=== PATIENT | female | born 2000 | race Caucasian/White ===

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

== ENCOUNTER 2019-01-12 17:33 | Inpatient (IN) | payer BC ==
--- NOTE | 2019-01-12 17:42 | PCM.LDHP ---
L&D History of Present Illness - General Date of Service: 01/12/19 Admit Problem/Dx: Admission Diagnosis/Problem Admission Diagnosis/Problem 01/12/19 17:37 18yo EDC 01/17/2019 39 2/7wks. O+, R-NI, GBS+. IOL due to maternal tachycardia. Source of Information: Patient History Limitations: Reports: No Limitations - History of Present Illness Improves with: Reports: None Worsens with: Reports: None Associated Symptoms: Reports: N - Related Data Allergies/Adverse Reactions: Allergies Allergy/AdvReac Type Severity Reaction Status Date / Time No Known Allergies Allergy Verified 10/18/18 23:21 Home Medications: Home Meds Acetaminophen [Tylenol Extra Strength] 1 - 2 tab PO PRN 10/18/18 [History] Past Medical History HEENT History: Reports: None Cardiovascular History: Reports: None Respiratory History: Reports: None Gastrointestinal History: Reports: None Genitourinary History: Reports: None 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: 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 History: Reports: None Neurological History: Reports: None Psychiatric History: Reports: None Endocrine/Metabolic History: Reports: None Hematologic History: Reports: None Dermatologic History: Reports: None - Infectious Disease History Infectious Disease History: Reports: Chicken Pox - Past Surgical History Cardiovascular Surgical History: Reports: None Social & Family History - Family History Family Medical History: Noncontributory - Caffeine Use Caffeine Use: Reports: Soda H&P Review of Systems - Review of Systems: Review Of Systems: See Below General: Reports: No Symptoms HEENT: Reports: No Symptoms Pulmonary: Reports: No Symptoms Cardiovascular: Reports: No Symptoms Gastrointestinal: Reports: No Symptoms Genitourinary: Reports: No Symptoms 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: Reports: No Symptoms Skin: Reports: No Symptoms Psychiatric: Reports: No Symptoms Neurological: Reports: No Symptoms Hematologic/Lymphatic: Reports: No Symptoms Immunologic: Reports: No Symptoms L&D Exam - Exam Exam: See Below - OB Specific Movement: Active Heart Tones: Present Presentation: Vertex - Tabares Score Tabares Score Cervix Position: Midposition Tabares Score Consistency: Soft Tabares Score Effacement: 51-70% Tabares Score Dilation: 3-4 cm Tabares Score 's Station: -2 Tabares Score Total: 8 - Exam General: Alert, Oriented, Cooperative HEENT: Hearing Intact Lungs: Clear to Auscultation, Normal Respiratory Effort Cardiovascular: Regular Rate, Regular Rhythm, Normal S1, Normal S2 GI/Abdominal Exam: Soft, Non-Tender Rectal Exam: Deferred Genitourinary: Normal external exam, Normal bimanual exam, Cervical dilitation Back Exam: Normal Inspection, Full Range of Motion Extremities: Normal Inspection, Normal Range of Motion, Non-Tender, No Pedal Edema, Normal Capillary Refill Skin: Warm, Dry, Intact Neurological: Cranial Nerves Intact, Reflexes Equal Bilateral, Strength Equal Bilateral, Normal Gait, Normal Speech, Normal Tone Psychiatric: Alert, Normal Affect, Normal Mood - Problem List (1) Tachycardia SNOMED Code(s): 9249806 ICD Code: R00.0 - TACHYCARDIA, UNSPECIFIED Status: Acute Priority: High Current Visit: Yes (2) Supervision of normal IUP (intrauterine ) in primigravida SNOMED Code(s): 31770616, 115010737, [id number], 522683241 ICD Code: Z34.00 - ENCNTR FOR SUPRVSN OF NORMAL FIRST , UNSP TRIMESTER Status: Acute Priority: High Current Visit: No Qualifiers: Trimester: third trimester Qualified Code(s): Z34.03 - Encounter for supervision of normal first , third trimester Problem List Initiated/Reviewed/Updated: Yes Assessment/Plan Comment:: IOL A: 18yo EDC 01/17/2019 39 2/7wks. O+, R-NI, GBS+. IOL due to maternal tachycardia. P: Admit, cytotec to pitocin, epidural prn. Anticipate , Dr Santos updated.
[2019-01-12] MEDS ORDERED: Methylergonovine 0.2 MG/1 ML Amp IM PRN (17:52)
[2019-01-12] MEDS ORDERED: Water For Irrigation,Sterile 1,000 ML Container IRR PRN (17:52)
[2019-01-12] MEDS ORDERED: Ampicillin 2 GM in Sodium Chloride 0.9% 100 ML IV ONE (17:52)
[2019-01-12] MEDS ORDERED: Lidocaine 1% 50 ML MDV INJECT PRN (17:52)
[2019-01-12] MEDS ORDERED: Sodium Chloride 0.9% 2.5 ML Syringe FLUSH PRN (17:52)
[2019-01-12] MEDS ORDERED: Nalbuphine 10 MG/1 ML Vial IVPUSH PRN (17:52)
[2019-01-12] MEDS ORDERED: Carboprost Tromethamine 250 MCG/1 ML Amp IM PRN (17:52)
[2019-01-12] MEDS ORDERED: Misoprostol 200 MCG Tab PO PRN (17:52)
[2019-01-12] MEDS ORDERED: Tranexamic Acid 1,000 MG in Sodium Chloride 0.9% 100 ML IV PRN (17:52)
[2019-01-12] MEDS ORDERED: Sodium Chloride 0.9% 10 ML Syringe FLUSH PRN (17:52)
[2019-01-12] MEDS ORDERED: Terbutaline 1 MG/ML SDV SUBCUT PRN (17:55)
[2019-01-12] MEDS ORDERED: Misoprostol 25 MCG (1/4 of 100 MCG) Tab VAG PRN (17:55)
[2019-01-12] MEDS ORDERED: Oxytocin/0.9 % Sodium Chloride 30 UNIT/500 ML BAG IV SCH ×2 (18:00)
[2019-01-12] MEDS: Lactated Ringers 1,000 ML IV SCH (18:12)
[2019-01-12] MEDS: Misoprostol 25 MCG (1/4 of 100 MCG) Tab PO SCH ×2 (18:17→23:05)
[2019-01-12] MEDS: Misoprostol 25 MCG (1/4 of 100 MCG) Tab VAG PRN ×2 (18:17→23:05)
[2019-01-12] MEDS ORDERED: hydrOXYzine Pamoate 25 MG Cap PO ONE (20:42)
[2019-01-13] MEDS ORDERED: Ampicillin 2 GM in Sodium Chloride 0.9% 100 ML IV ONE (05:04)
[2019-01-13] MEDS ORDERED: fentaNYL 100 MCG/2 ML SDV ONE (05:51)
[2019-01-13] MEDS ORDERED: Lidocaine HCl/EPINEPHrine 5 ML IJ ONE (05:52)
[2019-01-13] MEDS: Lactated Ringers 1,000 ML IV SCH (06:11)
--- NOTE | 2019-01-13 06:16 | PCM.PREANE ---
Preanesthetic Assessment - Anesthesia/Transfusion/Family Hx Anesthesia History: Prior Anesthesia Without Reaction Family History of Anesthesia Reaction: No - Review of Systems General: No Symptoms Pulmonary: No Symptoms Cardiovascular: No Symptoms Gastrointestinal: No Symptoms Neurological: Seizure Other: Reports: None - Physical Assessment Height: 1.68 m Weight: 78.925 kg ASA Class: 2E Mental Status: Alert & Oriented x3 Airway Class: Mallampati = 2 Dentition: Reports: Normal Dentition ROM/Head Extension: Full Lungs: Clear to Auscultation Cardiovascular: Regular Rate - Lab Values: Laboratory Last Values WBC 11.96 K/uL (4.0-11.0) H 01/12/19 18:09 RBC 3.53 M/uL (4.30-5.90) L 01/12/19 18:09 Hgb 10.2 g/dL (12.0-16.0) L 01/12/19 18:09 Hct 31.0 % (36.0-46.0) L 01/12/19 18:09 MCV 87.8 fL (80.0-98.0) 01/12/19 18:09 MCH 28.9 pg (27.0-32.0) 01/12/19 18:09 MCHC 32.9 g/dL (31.0-37.0) 01/12/19 18:09 RDW Std Deviation 43.3 fl (28.0-62.0) 01/12/19 18:09 RDW Coeff of Gideon 14 % (11.0-15.0) 01/12/19 18:09 Plt Count 250 K/uL (150-400) 01/12/19 18:09 MPV 9.70 fL (7.40-12.00) 01/12/19 18:09 Nucleated RBC % 0.0 /100WBC 01/12/19 18:09 Nucleated RBCs # 0 K/uL 01/12/19 18:09 Blood Type O POSITIVE 01/12/19 18:09 Antibody Screen NEGATIVE 01/12/19 18:09 - Allergies Allergies/Adverse Reactions: Allergies Allergy/AdvReac Type Severity Reaction Status Date / Time No Known Allergies Allergy Verified 01/12/19 17:50 - Acknowledgements Anesthesia Type Planned: Epidural Pt an Appropriate Candidate for the Planned Anesthesia: Yes Alternatives and Risks of Anesthesia Discussed w Pt/Guardian: Yes Pt/Guardian Understands and Agrees with Anesthesia Plan: Yes PreAnesthesia Questionnaire HEENT History: Reports: Impaired Vision, Otitis Media, Other (See Below) Cardiovascular History: Reports: Other (See Below) Other Cardiovascular History: tachycardia Respiratory History: Reports: None Gastrointestinal History: Reports: None Genitourinary History: Reports: UTI, 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: 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 History: Reports: None Neurological History: Reports: Migraines, Seizure, Other (See Below) Other Neuro History: last seizure february 2017 Psychiatric History: Reports: Anxiety, Depression Endocrine/Metabolic History: Reports: None Hematologic History: Reports: None Dermatologic History: Reports: None - Infectious Disease History Infectious Disease History: Reports: Chicken Pox - Past Surgical History HEENT Surgical History: Reports: Adenoidectomy, Tonsillectomy Other HEENT Surgeries/Procedures: wears eye glasses Cardiovascular Surgical History: Reports: None Respiratory Surgical History: Reports: None GI Surgical History: Reports: None Female Surgical History: Reports: None Endocrine Surgical History: Reports: None 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 Surgical History: Reports: None Dermatological Surgical History: Reports: None - HOME MEDS Home Medications: Home Meds Acetaminophen [Tylenol Extra Strength] 1 - 2 tab PO ASDIRECTED PRN 10/18/18 [ History] - CURRENT (IN HOUSE) MEDS Current Meds: Current Medications Carboprost Tromethamine (Hemabate Ds) 250 mcg IM ASDIRECTED PRN PRN Reason: Post Hemorrhage Lactated Ringer's (Ringers, Lactated) 1,000 mls @ 150 mls/hr IV ASDIRECTED MIKEY Last Admin: 01/13/19 06:11 Dose: 999 mls/hr Oxytocin/Sodium Chloride (Oxytocin 30 Unit/500 Ml-Ns) 30 unit in 500 mls @ 999 mls/hr IV TITRATE MIKEY Tranexamic Acid 1,000 mg/ (Sodium Chloride) 110 mls @ 660 mls/hr IV ONETIME PRN PRN Reason: Bleeding Oxytocin/Sodium Chloride (Oxytocin 30 Unit/500 Ml-Ns) 30 unit in 500 mls @ 2 mls/hr IV TITRATE MIKEY; Protocol Lidocaine HCl (Xylocaine 1%) 50 ml INJECT ONETIME PRN PRN Reason: Laceration repair Methylergonovine Maleate (Methergine) 0.2 mg IM ASDIRECTED PRN PRN Reason: Post Hemorrhage Misoprostol (Cytotec) 200 mcg PO ONETIME PRN PRN Reason: Post Hemorrhage Misoprostol (Cytotec) 25 mcg VAG ONETIME PRN PRN Reason: Cervical Ripening Last Admin: 01/12/19 23:05 Dose: 25 mcg Misoprostol (Cytotec) 25 mcg VAG Q4H PRN PRN Reason: Cervical Ripening Misoprostol (Cytotec) 25 mcg PO Q4H MIKEY Last Admin: 01/12/19 23:05 Dose: 25 mcg Nalbuphine HCl (Nubain) 10 mg IVPUSH Q1H PRN PRN Reason: Pain (severe 7-10) Sodium Chloride (Saline Flush) 10 ml FLUSH ASDIRECTED PRN PRN Reason: Keep Vein Open Sodium Chloride (Saline Flush) 2.5 ml FLUSH ASDIRECTED PRN PRN Reason: Keep Vein Open Sterile Water (Sterile Water For Irrigation) 1,000 ml IRR ASDIRECTED PRN PRN Reason: delivery Terbutaline Sulfate (Brethine) 0.25 mg SUBCUT ASDIRECTED PRN PRN Reason: Tacysystole Discontinued Medications Fentanyl (Sublimaze) Confirm Administered Dose 100 mcg .ROUTE .STK-MED ONE Stop: 01/13/19 05:52 Hydroxyzine Pamoate (Vistaril) 50 mg PO ONETIME ONE Stop: 01/12/19 20:43 Ampicillin Sodium 2 gm/ Sodium (Chloride) 100 mls @ 200 mls/hr IV ONETIME ONE Stop: 01/12/19 18:21 Last Admin: 01/12/19 19:00 Dose: Not Given Ampicillin Sodium 2 gm/ Sodium (Chloride) 100 mls @ 200 mls/hr IV ONETIME ONE Stop: 01/13/19 05:33 Last Admin: 01/13/19 05:25 Dose: 200 mls/hr Fentanyl/Bupivacaine HCl ([id number]-Tsslj-[id number] 2 Mcg/Ml-0.125%) Confirm Administered Dose 100 mls @ as directed .ROUTE .STK-MED ONE Stop: 01/13/19 05:52 Lidocaine/Epinephrine (Lidocaine 1.5%-Epi 1:200,000) Confirm Administered Dose 5 ml IJ .STK-MED ONE Stop: 01/13/19 05:53
[2019-01-13] MEDS ORDERED: Ampicillin 1 GM in Sodium Chloride 0.9% 50 ML IV SCH (10:00)
--- NOTE | 2019-01-13 13:10 | PCM.DEL ---
L & D Note - General Info Date of Service: 01/13/19 Mother's Due Date: 01/17/19 - Delivery Note Labor: Augmented by Oxytocin Cervical Ripening Method: Misoprostil Delivery Outcome: Livebirth Infant Delivery Method: Spontaneous Vaginal Delivery-Single Delivery Mode: Spontaneous Presentation: Vertex Nuchal Cord: None Anesthesia Type: Epidural Amniotic Fluid Description: Clear Episiotomy Type: None Laceration: 1st Degree, Labial Suture type: Other Suture size: 4-0 Placenta: Intact, Spontaneous Cord: 3 Vessels Score 1 min: 2 Score 5 min: 5 Score 10 min: 9 Second Stage Interventions: Reports: Pushing, Pulls Own Legs Back Delivery Comments (Free Text/Narrative):: of viable female, head delivered with good pushing, shoulders and body followed easily. limp and not responsive placed on mothers abdomen with RN at bs stimulating, CC and cut, infant to warmer, rapid response called. Pitocin to IVF, cord blood collected. Placenta delivered grossly intact. Inspection noted 1st degree upper labial lac that was repaired in usual manor with 4-0 mono. EBL 300cc, APGARS 2/5/9 WT: 7lb 6oz. Mother and baby left in stable condition for recovery. Induction Criteria - Tabares Score Tabares Score Dilation: 3-4 cm Tabares Score Effacement: 60-70% Tabares Score 's Station: -2 Tabares Score Consistency: Medium Tabares Score Cervix Position: Midposition Tabares Score Total: 7 Tabares Score Presenting Part: Reports: Cephalic - Induction Gestational Age >/= 39 wks: Yes Medical Indication: maternal tachycardia Reassuring Monitoring Strip: Yes Absence of Tachy Systole: Yes - General Info Date of Service: 01/13/19 Admission Dx/Problem (Free Text): Admission Diagnosis/Problem Admission Diagnosis/Problem 01/12/19 17:37 18yo EDC 01/17/2019 39 2/7wks. O+, R-NI, GBS+. IOL due to maternal tachycardia. Functional Status: Reports: Pain Controlled - Review of Systems General: Reports: No Symptoms HEENT: Reports: No Symptoms Pulmonary: Reports: No Symptoms Cardiovascular: Reports: No Symptoms Gastrointestinal: Reports: No Symptoms Genitourinary: Reports: No Symptoms 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: Reports: No Symptoms Skin: Reports: No Symptoms Neurological: Reports: No Symptoms Psychiatric: Reports: No Symptoms - Patient Data Weight - Most Recent: 78.925 kg Lab Results Last 24 Hours: Laboratory Results - last 24 hr 01/12/19 01/12/19 Range/Units 18:09 18:09 WBC 11.96 H (4.0-11.0) K/uL RBC 3.53 L (4.30-5.90) M/uL Hgb 10.2 L (12.0-16.0) g/dL Hct 31.0 L (36.0-46.0) % MCV 87.8 (80.0-98.0) fL MCH 28.9 (27.0-32.0) pg MCHC 32.9 (31.0-37.0) g/dL RDW Std Deviation 43.3 (28.0-62.0) fl RDW Coeff of Gideon 14 (11.0-15.0) % Plt Count 250 (150-400) K/uL MPV 9.70 (7.40-12.00) fL Nucleated RBC % 0.0 /100WBC Nucleated RBCs # 0 K/uL Blood Type O POSITIVE Antibody Screen NEGATIVE Med Orders - Current: Current Medications Carboprost Tromethamine (Hemabate Ds) 250 mcg IM ASDIRECTED PRN PRN Reason: Post Hemorrhage Lactated Ringer's (Ringers, Lactated) 1,000 mls @ 150 mls/hr IV ASDIRECTED MIKEY Last Admin: 01/13/19 06:11 Dose: 999 mls/hr Oxytocin/Sodium Chloride (Oxytocin 30 Unit/500 Ml-Ns) 30 unit in 500 mls @ 999 mls/hr IV TITRATE MIKEY Tranexamic Acid 1,000 mg/ (Sodium Chloride) 110 mls @ 660 mls/hr IV ONETIME PRN PRN Reason: Bleeding Oxytocin/Sodium Chloride (Oxytocin 30 Unit/500 Ml-Ns) 30 unit in 500 mls @ 2 mls/hr IV TITRATE MIKEY; Protocol Last Titration: 01/13/19 10:43 Dose: 6 munits/min, 6 mls/hr Ampicillin Sodium 1 gm/ Sodium (Chloride) 50 mls @ 100 mls/hr IV Q4H MIKEY Last Admin: 01/13/19 10:20 Dose: 100 mls/hr Lidocaine HCl (Xylocaine 1%) 50 ml INJECT ONETIME PRN PRN Reason: Laceration repair Methylergonovine Maleate (Methergine) 0.2 mg IM ASDIRECTED PRN PRN Reason: Post Hemorrhage Misoprostol (Cytotec) 200 mcg PO ONETIME PRN PRN Reason: Post Hemorrhage Misoprostol (Cytotec) 25 mcg VAG ONETIME PRN PRN Reason: Cervical Ripening Last Admin: 01/12/19 23:05 Dose: 25 mcg Misoprostol (Cytotec) 25 mcg VAG Q4H PRN PRN Reason: Cervical Ripening Misoprostol (Cytotec) 25 mcg PO Q4H MIKEY Last Admin: 01/12/19 23:05 Dose: 25 mcg Nalbuphine HCl (Nubain) 10 mg IVPUSH Q1H PRN PRN Reason: Pain (severe 7-10) Sodium Chloride (Saline Flush) 10 ml FLUSH ASDIRECTED PRN PRN Reason: Keep Vein Open Sodium Chloride (Saline Flush) 2.5 ml FLUSH ASDIRECTED PRN PRN Reason: Keep Vein Open Sterile Water (Sterile Water For Irrigation) 1,000 ml IRR ASDIRECTED PRN PRN Reason: delivery Terbutaline Sulfate (Brethine) 0.25 mg SUBCUT ASDIRECTED PRN PRN Reason: Tacysystole Discontinued Medications Fentanyl (Sublimaze) Confirm Administered Dose 100 mcg .ROUTE .STK-MED ONE Stop: 01/13/19 05:52 Hydroxyzine Pamoate (Vistaril) 50 mg PO ONETIME ONE Stop: 01/12/19 20:43 Ampicillin Sodium 2 gm/ Sodium (Chloride) 100 mls @ 200 mls/hr IV ONETIME ONE Stop: 01/12/19 18:21 Last Admin: 01/12/19 19:00 Dose: Not Given Ampicillin Sodium 2 gm/ Sodium (Chloride) 100 mls @ 200 mls/hr IV ONETIME ONE Stop: 01/13/19 05:33 Last Admin: 01/13/19 05:25 Dose: 200 mls/hr Fentanyl/Bupivacaine HCl (Ggpsenik-Gkywy-Gn 2 Mcg/Ml-0.125%) Confirm Administered Dose 100 mls @ as directed .ROUTE .STK-MED ONE Stop: 01/13/19 05:52 Lidocaine/Epinephrine (Lidocaine 1.5%-Epi 1:200,000) Confirm Administered Dose 5 ml IJ .STK-MED ONE Stop: 01/13/19 05:53 - Exam General: Alert, Oriented, Cooperative, No Acute Distress Lungs: Normal Respiratory Effort GI/Abdominal Exam: Soft, Non-Tender (Female) Exam: Normal External Exam, Normal Bimanual Exam, Vaginal Bleeding, Vaginal Tears Back Exam: Normal Inspection, Full Range of Motion Extremities: Normal Inspection, Normal Range of Motion, Non-Tender, No Pedal Edema, Normal Capillary Refill Skin: Warm, Dry, Intact Wound/Incisions: Healing Well Neurological: No New Focal Deficit, Normal Speech, Normal Tone, Strength Equal Bilateral Psy/Mental Status: Alert, Normal Affect, Normal Mood - Problem List & Annotations (1) Tachycardia SNOMED Code(s): 1225012 Code(s): R00.0 - TACHYCARDIA, UNSPECIFIED Status: Acute Priority: High Current Visit: Yes (2) Supervision of normal IUP (intrauterine ) in primigravida SNOMED Code(s): 47053179, 634607568, 878543215, 216369875 Code(s): Z34.00 - ENCNTR FOR SUPRVSN OF NORMAL FIRST , UNSP TRIMESTER Status: Acute Priority: High Current Visit: No Qualifiers: Trimester: third trimester Qualified Code(s): Z34.03 - Encounter for supervision of normal first , third trimester (3) (normal spontaneous vaginal delivery) SNOMED Code(s): 34474313 Code(s): O80 - ENCOUNTER FOR FULL-TERM UNCOMPLICATED DELIVERY Status: Acute Priority: High Current Visit: Yes - Problem List Review Problem List Initiated/Reviewed/Updated: Yes - My Orders Last 24 Hours: My Active Orders 01/12/19 17:52 Patient Status [ADT] Routine Heart Tones [RC] CONTINUOUS Non Stress Test [RC] PER UNIT ROUTINE May Shower [RC] ASDIRECTED Notify Provider [RC] PRN Up ad Ramya [RC] ASDIRECTED Vaginal Exam [RC] PRN Vital Signs [RC] PER UNIT ROUTINE Carboprost Tromethamine [Hemabate DS] 250 mcg IM ASDIRECTED PRN Lidocaine 1% [Xylocaine 1%] 50 ml INJECT ONETIME PRN Methylergonovine [Methergine] 0.2 mg IM ASDIRECTED PRN Nalbuphine [Nubain] 10 mg IVPUSH Q1H PRN Sodium Chloride 0.9% [Saline Flush] 10 ml FLUSH ASDIRECTED PRN Sodium Chloride 0.9% [Saline Flush] 2.5 ml FLUSH ASDIRECTED PRN Tranexamic Acid [Cyklokapron] 1,000 mg Sodium Chloride 0.9% [Normal Saline] 100 ml IV ONETIME Water For Irrigation,Sterile [Sterile Water for Irrigation] 1,000 ml IRR ASDIRECTED PRN miSOPROStol [Cytotec] 200 mcg PO ONETIME PRN Scalp Electrode [WOMSER] Per Unit Routine Peripheral IV Insertion Adult [OM.PC] Routine Resuscitation Status Routine 01/12/19 17:55 Communication Order [RC] ASDIRECTED Communication Order [RC] ASDIRECTED Communication Order [RC] ASDIRECTED Notify Provider [RC] PRN Notify Provider [RC] PRN Notify Provider [RC] STAT Oxygen Therapy [RC] ASDIRECTED Terbutaline [Brethine] 0.25 mg SUBCUT ASDIRECTED PRN miSOPROStol [Cytotec] 25 mcg VAG ONETIME PRN miSOPROStol [Cytotec] 25 mcg VAG Q4H PRN 01/12/19 18:00 Lactated Ringers [Ringers, Lactated] 1,000 ml IV ASDIRECTED Oxytocin/0.9 % Sodium Chloride [Oxytocin 30 Unit/500 ML-NS] 30 unit in 500 ml IV TITRATE Oxytocin/0.9 % Sodium Chloride [Oxytocin 30 Unit/500 ML-NS] 30 unit in 500 ml IV TITRATE miSOPROStol [Cytotec] 25 mcg PO Q4H Medication Administration Instruction [OM.PC] Q3H 01/12/19 Dinner Regular Diet [DIET] - Plan Plan:: IOL A: 18yo EDC 01/17/2019 39 2/7wks. O+, R-NI, GBS+. IOL due to maternal tachycardia. P: Admit, cytotec to pitocin, epidural prn. Anticipate , Dr Santos updated. Delivery A: viable female, AGPARS , WT: 7lb 6oz, EBL 300cc, 1st deg lac with repair. Mother and baby in stable condition P: Routine pp plan of care
[2019-01-13] MEDS ORDERED: oxyCODONE 5 MG Tab PO PRN (13:15)
[2019-01-13] MEDS ORDERED: Docusate Sodium 100 MG Cap PO PRN (13:15)
[2019-01-13] MEDS ORDERED: Benzocaine/Menthol 20%-0.5% Spray 78 GM Cannister TOP PRN (13:15)
[2019-01-13] MEDS ORDERED: Witch Hazel Medicated Pads 40/Jar TOP PRN (13:15)
[2019-01-13] MEDS ORDERED: Bisacodyl 10 MG Supp RECTAL PRN (13:15)
[2019-01-13] MEDS ORDERED: Lanolin 100% Cream 7 GM Tube TOP PRN (13:15)
[2019-01-13] MEDS ORDERED: Ibuprofen 400 MG Tab PO PRN (13:15)
[2019-01-13] MEDS ORDERED: Ibuprofen 800 MG Tab PO PRN (13:15)
[2019-01-13] MEDS ORDERED: Acetaminophen 500 MG Tab PO PRN ×2 (13:15)
--- NOTE | 2019-01-14 07:14 | PCM48HPAN ---
Post Anesthesia Note - EVALUATION WITHIN 48HRS OF ANESTHETIC Vital Signs in Normal Range: Yes Patient Participated in Evaluation: Yes Respiratory Function Stable: Yes Airway Patent: Yes Cardiovascular Function Stable: Yes Hydration Status Stable: Yes Pain Control Satisfactory: Yes Nausea and Vomiting Control Satisfactory: Yes Mental Status Recovered: Yes Resp Rate: 18
--- NOTE | 2019-01-14 08:27 | PCM.DCSUM1 ---
Discharge Summary - Hospital Course Free Text/Narrative:: discharge home with ; follow up in 6 weeks for Diagnosis: Stroke: No - Discharge Data Discharge Date: 01/14/19 Discharge Disposition: Home, Self-Care 01 Condition: Good - Patient Instructions Diet: Usual Diet as Tolerated Activity: As Tolerated, No Strenuous Activities, Rest and Relax Today Driving: May Drive Today Showering/Bathing: May Shower Notify Provider of: Fever, Increased Pain, Swelling and Redness, Nausea and/or Vomiting Other/Special Instructions: discharge home with ; follow up in 6 weeks for - Discharge Plan *PRESCRIPTION DRUG MONITORING PROGRAM REVIEWED*: Not Applicable *COPY OF PRESCRIPTION DRUG MONITORING REPORT IN PATIENT KRIS: Not Applicable Home Medications: Home Meds Acetaminophen [Tylenol Extra Strength] 1 - 2 tab PO ASDIRECTED PRN 10/18/18 [ History] Oxygen Therapy Mode: Room Air Referrals: [facility] [Outside] Deanne Andujar CNM [Mid-] - 02/24/19 1:30 pm - Discharge Summary/Plan Comment DC Time >30 min.: Yes - Patient Data Vitals - Most Recent: Last Vital Signs Temp 36.5 C 01/14/19 07:45 Pulse 52 L 01/14/19 07:45 Resp 16 01/14/19 07:45 BP 101/60 01/14/19 07:45 Pulse Ox 97 01/14/19 07:45 Weight - Most Recent: 78.925 kg Lab Results - Last 24 hrs: Laboratory Results - last 24 hr 01/14/19 Range/Units 05:50 Hgb 8.4 L (12.0-16.0) g/dL Hct 26.0 L (36.0-46.0) % Med Orders - Current: Current Medications Acetaminophen (Tylenol Extra Strength) 500 mg PO Q4H PRN PRN Reason: Pain Acetaminophen (Tylenol Extra Strength) 1,000 mg PO Q4H PRN PRN Reason: Pain Benzocaine/Menthol (Dermoplast Pain Relief 20%-0.5% [place]) 78 gm TOP ASDIRECTED PRN PRN Reason: Perineal Comfort Measure Last Admin: 01/13/19 18:05 Dose: 1 can Bisacodyl (Dulcolax) 10 mg RECTAL ONETIME PRN PRN Reason: Constipation Docusate Sodium (Colace) 100 mg PO BID PRN PRN Reason: Constipation Emollient Ointment (Lansinoh Hpa) 0 gm TOP ASDIRECTED PRN PRN Reason: Sore Nipples Last Admin: 01/13/19 18:05 Dose: 1 tube Ibuprofen (Motrin) 400 mg PO Q4H PRN PRN Reason: Pain Ibuprofen (Motrin) 800 mg PO Q6H PRN PRN Reason: Pain Last Admin: 01/14/19 01:58 Dose: 800 mg Oxycodone HCl (Oxycodone) 5 mg PO Q2H PRN PRN Reason: Pain Witch Maria Guadalupe (Tucks) 1 pad TOP ASDIRECTED PRN PRN Reason: comfort care Last Admin: 01/13/19 18:05 Dose: 1 tub Discontinued Medications Carboprost Tromethamine (Hemabate Ds) 250 mcg IM ASDIRECTED PRN PRN Reason: Post Hemorrhage Fentanyl (Sublimaze) Confirm Administered Dose 100 mcg .ROUTE .STK-MED ONE Stop: 01/13/19 05:52 Last Admin: 01/14/19 08:04 Dose: Not Given Hydroxyzine Pamoate (Vistaril) 50 mg PO ONETIME ONE Stop: 01/12/19 20:43 Ampicillin Sodium 2 gm/ Sodium (Chloride) 100 mls @ 200 mls/hr IV ONETIME ONE Stop: 01/12/19 18:21 Last Admin: 01/12/19 19:00 Dose: Not Given Lactated Ringer's (Ringers, Lactated) 1,000 mls @ 150 mls/hr IV ASDIRECTED MIKEY Last Admin: 01/13/19 06:11 Dose: 999 mls/hr Oxytocin/Sodium Chloride (Oxytocin 30 Unit/500 Ml-Ns) 30 unit in 500 mls @ 999 mls/hr IV TITRATE MIKEY Tranexamic Acid 1,000 mg/ (Sodium Chloride) 110 mls @ 660 mls/hr IV ONETIME PRN PRN Reason: Bleeding Oxytocin/Sodium Chloride (Oxytocin 30 Unit/500 Ml-Ns) 30 unit in 500 mls @ 2 mls/hr IV TITRATE MIKEY; Protocol Last Titration: 01/13/19 12:30 Dose: 500 munits/min, 500 mls/hr Ampicillin Sodium 2 gm/ Sodium (Chloride) 100 mls @ 200 mls/hr IV ONETIME ONE Stop: 01/13/19 05:33 Last Admin: 01/13/19 05:25 Dose: 200 mls/hr Fentanyl/Bupivacaine HCl (Dhgfybwg-Gpdog-Rb 2 Mcg/Ml-0.125%) Confirm Administered Dose 100 mls @ as directed .ROUTE .STK-MED ONE Stop: 01/13/19 05:52 Last Admin: 01/14/19 08:03 Dose: Not Given Ampicillin Sodium 1 gm/ Sodium (Chloride) 50 mls @ 100 mls/hr IV Q4H [facility] Last Admin: 01/13/19 10:20 Dose: 100 mls/hr Lidocaine HCl (Xylocaine 1%) 50 ml INJECT ONETIME PRN PRN Reason: Laceration repair Lidocaine/Epinephrine (Lidocaine 1.5%-Epi 1:200,000) Confirm Administered Dose 5 ml IJ .STK-MED ONE Stop: 01/13/19 05:53 Last Admin: 01/14/19 08:04 Dose: Not Given Methylergonovine Maleate (Methergine) 0.2 mg IM ASDIRECTED PRN PRN Reason: Post Hemorrhage Misoprostol (Cytotec) 200 mcg PO ONETIME PRN PRN Reason: Post Hemorrhage Misoprostol (Cytotec) 25 mcg VAG ONETIME PRN PRN Reason: Cervical Ripening Last Admin: 01/12/19 23:05 Dose: 25 mcg Misoprostol (Cytotec) 25 mcg VAG Q4H PRN PRN Reason: Cervical Ripening Misoprostol (Cytotec) 25 mcg PO Q4H [facility] Last Admin: 01/12/19 23:05 Dose: 25 mcg Nalbuphine HCl (Nubain) 10 mg IVPUSH Q1H PRN PRN Reason: Pain (severe 7-10) Sodium Chloride (Saline Flush) 10 ml FLUSH ASDIRECTED PRN PRN Reason: Keep Vein Open Sodium Chloride (Saline Flush) 2.5 ml FLUSH ASDIRECTED PRN PRN Reason: Keep Vein Open Sterile Water (Sterile Water For Irrigation) 1,000 ml IRR ASDIRECTED PRN PRN Reason: delivery Terbutaline Sulfate (Brethine) 0.25 mg SUBCUT ASDIRECTED PRN PRN Reason: Tacysystole
== END 2019-01-14 14:40 | disposition home or self-care (01) | DRG 560 ==
LOC: MW.OBCHECK 17:33 → MW.OB 17:34 → OBSVTOIN 01-13 13:16 → MW.OB 01-13 18:56
PROVIDERS: ADMIT Obstetrics & Gynecology; ATTEND Obstetrics & Gynecology
PROC: 10E0XZZ Delivery of Products of Conception, External Approach (ICD-10-PCS; principal; 2019-01-13)
PROC: 3E0P7VZ Introduction of Hormone into Female Reproductive, Via Natural or Artificial Opening (ICD-10-PCS; 2019-01-13)
PROC: 10907ZC Drainage of Amniotic Fluid, Therapeutic from Products of Conception, Via Natural or Artificial Opening (ICD-10-PCS; 2019-01-13)
PROC: 3E033VJ Introduction of Other Hormone into Peripheral Vein, Percutaneous Approach (ICD-10-PCS; 2019-01-13)
PROC: 0UQMXZZ Repair Vulva, External Approach (ICD-10-PCS; 2019-01-13)
PROC: 00HU33Z Insertion of Infusion Device into Spinal Canal, Percutaneous Approach (ICD-10-PCS; 2019-01-13)
PROC: 3E0R3BZ Introduction of Anesthetic Agent into Spinal Canal, Percutaneous Approach (ICD-10-PCS; 2019-01-13)
DX: O75.89 Other specified complications of labor and delivery (principal); Z37.0 Single live birth; O70.0 First degree perineal laceration during delivery; O99.824 Streptococcus B carrier state complicating childbirth; Z3A.39 39 weeks gestation of pregnancy
CPT/HCPCS: 36415; 59025; 59409; 85014; 85018; 85027; 86850; 86900; 86901; A9270-GY; J0290; J2590; J3010; J7030; J7050; J7120

== ENCOUNTER 2019-05-30 12:08 | Emergency (ER) | payer SELFPAY ==
--- NOTE | 2019-05-30 12:16 | EDM.PDOC ---
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 She states she has not had a seizure in two years and has been off of her medication but this morning she was walking with her sister when she started feeling lightheaded and short of breath like she was going to have a seizure. She sat down and states she could hear people but was unable to see anything. Mom states that when she got to the room she was laying down moving her head up and down. She states she has a slight headache. She is complaing of left sided abdominal pain. She recently found out she is and is approximally 10 weeks by dates. Denies fevers, chills, nausea, vomiting, vaginal bleeding or discharge. Review of systems: As per history of present illness and below otherwise all systems reviewed and negative. Past medical history: As per history of present illness and as reviewed below otherwise noncontributory. Surgical history: As per history of present illness and as reviewed below otherwise noncontributory. Social history: No reported history of drug or alcohol abuse. Family history: As per history of present illness and as reviewed below otherwise noncontributory. Physical exam: General: Patient sitting comfortably in no acute distress and nontoxic appearing HEENT: Atraumatic, normocephalic, pupils reactive, negative for conjunctival pallor or scleral icterus, mucous membranes moist, throat clear, neck supple, nontender, trachea midline. No meningeal signs. Lungs: Clear to auscultation, breath sounds equal bilaterally, chest nontender. Heart: S1S2, regular, negative for clicks, rubs, or overt murmur. Abdomen: Soft, nondistended, nontender. Negative for masses or hepatosplenomegaly. Negative for costovertebral tenderness. No rigidity, rebound , guarding. Pelvis: Stable nontender. Genitourinary: Deferred. Rectal: Deferred. Extremities: Atraumatic, negative for cords or calf pain. Neurovascular unremarkable. Neuro: Awake, alert, oriented. Cranial nerves II through XII unremarkable. Cerebellum unremarkable. Motor and sensory unremarkable throughout. Exam nonfocal. Notes: Diagnostics: CBC, CMP, UA, hcg quant, OB US Therapeutics: 1L Normal Saline IV Prescriptions: Augmentin Impression: UTI, seizure-like activity Plan: 1. Take antibiotic as instructed 2. Follow up with OB and neurology 3. Return to ED as needed as discussed Definitive disposition and diagnosis as appropriate pending reevaluation and review of above. Left Lower Abdominal Pain Score (Numeric/FACES): 3 - Related Data Allergies Allergy/AdvReac Type Severity Reaction Status Date / Time No Known Allergies Allergy Verified 05/30/19 12:20 Home Meds: Home Meds Amoxicillin/Potassium Clav [Augmentin 500-125 Tablet] 1 each PO BID 7 Days #14 tablet 05/30/19 [Rx] Past Medical History HEENT History: Reports: Impaired Vision, Otitis Media, Other (See Below) Cardiovascular History: Reports: Other (See Below) Other Cardiovascular History: tachycardia Respiratory History: Reports: None Gastrointestinal History: Reports: None Genitourinary History: Reports: UTI, Recurrent 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: 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 History: Reports: None Neurological History: Reports: Migraines, Seizure, Other (See Below) Other Neuro History: last seizure february 2017 Psychiatric History: Reports: Anxiety, Depression Endocrine/Metabolic History: Reports: None Hematologic History: Reports: None Dermatologic History: Reports: None - Infectious Disease History Infectious Disease History: Reports: Chicken Pox - Past Surgical History HEENT Surgical History: Reports: Adenoidectomy, Tonsillectomy Other HEENT Surgeries/Procedures: wears eye glasses Cardiovascular Surgical History: Reports: None Respiratory Surgical History: Reports: None GI Surgical History: Reports: None Female Surgical History: Reports: None Endocrine Surgical History: Reports: None 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 Surgical History: Reports: None Dermatological Surgical History: Reports: None Social & Family History - Family History Family Medical History: Noncontributory - Caffeine Use Caffeine Use: Reports: Soda ED ROS GENERAL - Review of Systems Review Of Systems: ROS reveals no pertinent complaints other than HPI. ED EXAM, GI/ABD - Physical Exam Exam: See Below (see dictation) Course - Vital Signs Last Recorded V/S: Last Vital Signs Temp 97.6 F 05/30/19 12:16 Pulse 69 05/30/19 12:16 Resp 18 07/13/19 12:16 BP 122/76 05/30/19 12:16 Pulse Ox 100 05/30/19 12:16 - Orders/Labs/Meds Orders: Active Orders 24 hr Category Date Time Status EKG Documentation Completion [RC] STAT Care 05/30/19 12:15 Active CULTURE URINE [RM] Stat Lab 05/30/19 13:30 Received Labs: Laboratory Tests 05/30/19 05/30/19 05/30/19 Range/Units 12:27 12:27 13:30 WBC 6.72 (4.0-11.0) K/uL RBC 4.44 (4.30-5.90) M/uL Hgb 12.3 (12.0-16.0) g/dL Hct 36.7 (36.0-46.0) % MCV 82.7 (80.0-98.0) fL MCH 27.7 (27.0-32.0) pg MCHC 33.5 (31.0-37.0) g/dL RDW Std Deviation 44.8 (28.0-62.0) fl RDW Coeff of Gideon 15 (11.0-15.0) % Plt Count 188 (150-400) K/uL MPV 10.10 (7.40-12.00) fL Neut % (Auto) 64.4 (48.0-80.0) % Lymph % (Auto) 25.6 (16.0-40.0) % [place] % (Auto) 8.8 (0.0-15.0) % Eos % (Auto) 0.9 (0.0-7.0) % Baso % (Auto) 0.3 (0.0-1.5) % Neut # (Auto) 4.3 (1.4-5.7) K/uL Lymph # (Auto) 1.7 (0.6-2.4) K/uL [place] # (Auto) 0.6 (0.0-0.8) K/uL Eos # (Auto) 0.1 (0.0-0.7) K/uL Baso # (Auto) 0.0 (0.0-0.1) K/uL Nucleated RBC % 0.0 /100WBC Nucleated RBCs # 0 K/uL Sodium 137 (136-145) mmol/L Potassium 3.5 (3.5-5.1) mmol/L Chloride 103 (98-107) mmol/L Carbon Dioxide 22.6 (21.0-32.0) mmol/L BUN 13 (7.0-18.0) mg/dL Creatinine 0.6 (0.6-1.0) mg/dL Est Cr Clr Drug Dosing 140.39 mL/min Estimated GFR (MDRD) > 60.0 ml/min Glucose 95 (74-106) mg/dL Calcium 9.0 (8.5-10.1) mg/dL Total Bilirubin 0.6 (0.2-1.0) mg/dL AST 11 L (15-37) IU/L ALT 17 (14-63) IU/L Alkaline Phosphatase 68 (46-116) U/L Total Protein 7.4 (6.4-8.2) g/dL Albumin 4.1 (3.4-5.0) g/dL Globulin 3.3 (2.6-4.0) g/dL Albumin/Globulin Ratio 1.2 (0.9-1.6) HCG, Quant 061075.0 mIU/mL Urine Color YELLOW Urine Appearance SLT CLOUDY Urine pH 6.0 (5.0-8.0) Ur Specific [place] 1.010 (1.001-1.035) Urine Protein NEGATIVE (NEGATIVE) mg/dL Urine Glucose (UA) NEGATIVE (NEGATIVE) mg/dL Urine Ketones NEGATIVE (NEGATIVE) mg/dL Urine Occult Blood NEGATIVE (NEGATIVE) Urine Nitrite POSITIVE H (NEGATIVE) Urine Bilirubin NEGATIVE (NEGATIVE) Urine Urobilinogen 0.2 (<2.0) EU/dL Ur Leukocyte Esterase TRACE H (NEGATIVE) Urine RBC 0-1 (0-2/HPF) Urine WBC 2-5 (0-5/HPF) Ur Epithelial Cells FEW (NONE-FEW) Urine Bacteria 3+ H (NEGATIVE) Departure - Departure Time of Disposition: 14:44 Disposition: Home, Self-Care 01 Condition: Good Clinical Impression: UTI (urinary tract infection), Seizure-like activity - Discharge Information Prescriptions: Amoxicillin/Potassium Clav [Augmentin 500-125 Tablet] 1 each PO BID 7 Days #14 tablet Instructions: Urinary Tract Infection, Adult, Iqbu-[id number]-Kapd Referrals: PCP,Unknown [Primary Care Provider] - Carolina Marshall MD [Physician] - 1 Week (History of seizure, off medication x 2 years. 10 weeks gestation with reported recent seizure) Forms: ED Department Discharge Additional Instructions: The following information is given to patients seen in the emergency department who are being discharged to home. This information is to outline your options for follow-up care. We provide all patients seen in our emergency department with a follow-up referral. The need for follow-up, as well as the timing and circumstances, are variable depending upon the specifics of your emergency department visit. If you don't have a primary care physician on staff, we will provide you with a referral. We always advise you to contact your personal physician following an emergency department visit to inform them of the circumstance of the visit and for follow-up with them and/or the need for any referrals to a consulting specialist. The emergency department will also refer you to a specialist when appropriate. This referral assures that you have the opportunity for follow-up care with a specialist. All of these measure are taken in an effort to provide you with optimal care, which includes your follow-up. Under all circumstances we always encourage you to contact your private physician who remains a resource for coordinating your care. When calling for follow-up care, please make the office aware that this follow-up is from your recent emergency room visit. If for any reason you are refused follow-up, please contact the [facility] Emergency Department at and asked to speak to the emergency department charge nurse. [facility] [address] [place] [address] [id number] [address] [facility] Specialty Care - Neurology Professional Building [address] [place] [address], [address] [place] [address] 1. Take antibiotic as instructed 2. Follow up with OB and neurology 3. Return to ED as needed as discussed - My Orders Last 24 Hours: My Active Orders 05/30/19 12:15 EKG Documentation Completion [RC] STAT 05/30/19 13:30 CULTURE URINE [RM] Stat - Assessment/Plan Last 24 Hours: My Active Orders 05/30/19 12:15 EKG Documentation Completion [RC] STAT 05/30/19 13:30 CULTURE URINE [RM] Stat
[2019-05-30 13:24] LABS: CHLORIDE,CL 103 mmol/L (98-107); SODIUM,NA 137 mmol/L (136-145)
--- NOTE | 2019-05-30 14:30 | US ---
INDICATION: Positive test, possible seizure, check viability TECHNIQUE: Ultrasound OB pelvis transvaginal. Real time pablo scale imaging of the pelvis was performed. COMPARISON: None FINDINGS: Sonographic imaging demonstrates a single living intrauterine gestation with a heartbeat measuring 170 beats per minute. The embryo`s crown rump length measures 2.8 cm, which corresponds to a gestational age of 9 weeks and 5 days with a sonographic due date of 12/28/2019. Yolk sac is visualized. Thin hypoechoic area, anterior and inferior to the gestational sac, which may represent a tiny subchorionic hemorrhage. IMPRESSION: Single living intrauterine gestation with an estimated gestational age of 9 weeks and 5 days and estimated due date of 12/28/2019. Dictated by Juanita Gamez MD @ 05/30/2019 2:28:31 PM Dictated by: Juanita Gamez MD @ 05/30/2019 14:28:41 (Electronically Signed)
== END 2019-05-30 14:55 | disposition home or self-care (01) ==
LOC: MW.ED 12:08
DX: O23.41 Unspecified infection of urinary tract in pregnancy, first trimester (principal); O99.89 Other specified diseases and conditions complicating pregnancy, childbirth and the puerperium; R56.9 Unspecified convulsions; Z98.890 Other specified postprocedural states; Z3A.10 10 weeks gestation of pregnancy
CPT/HCPCS: 36415; 76801; 76801-26; 80053; 81001; 84702; 85025; 87086; 87088; 87186; 93005; 99284; 99285-25

== ENCOUNTER 2019-09-05 17:13 | Observation (INO) | payer MEDICAID ==
[2019-09-05] MEDS ORDERED: ceFAZolin 2 GM in Premix Bag 1 BAG IV ONE (18:00)
[2019-09-05] MEDS ORDERED: Lactated Ringers 1,000 ML IV SCH (18:00)
--- NOTE | 2019-09-05 19:15 | PCM.LDHP ---
L&D History of Present Illness - General Date of Service: 09/05/19 Admit Problem/Dx: Patient Status Order with Admit Dx/Problem 09/05/19 17:59 Patient Status [ADT] Routine Admission Diagnosis/Problem Admission Diagnosis/Problem Fever Source of Information: Patient History Limitations: Reports: No Limitations - History of Present Illness Improves with: Reports: None Worsens with: Reports: None Associated Symptoms: Reports: N - Related Data Allergies/Adverse Reactions: Allergies Allergy/AdvReac Type Severity Reaction Status Date / Time No Known Allergies Allergy Verified 05/30/19 12:20 Home Medications: Home Meds Pnv No.95/Ferrous Fum/Folic AC [ Caplet] 1 tab PO DAILY 09/05/19 [ History] Past Medical History HEENT History: Reports: Impaired Vision, Otitis Media, Other (See Below) Cardiovascular History: Reports: Other (See Below) Other Cardiovascular History: tachycardia Respiratory History: Reports: None Gastrointestinal History: Reports: None Genitourinary History: Reports: UTI, Recurrent 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: 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 History: Reports: None Neurological History: Reports: Migraines, Seizure, Other (See Below) Other Neuro History: last seizure february 2017 Psychiatric History: Reports: Anxiety, Depression Endocrine/Metabolic History: Reports: None Hematologic History: Reports: None Dermatologic History: Reports: None - Infectious Disease History Infectious Disease History: Reports: Chicken Pox - Past Surgical History HEENT Surgical History: Reports: Adenoidectomy, Tonsillectomy Other HEENT Surgeries/Procedures: wears eye glasses Cardiovascular Surgical History: Reports: None Respiratory Surgical History: Reports: None GI Surgical History: Reports: None Female Surgical History: Reports: None Endocrine Surgical History: Reports: None 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 Surgical History: Reports: None Dermatological Surgical History: Reports: None Social & Family History - Family History Family Medical History: Noncontributory - Caffeine Use Caffeine Use: Reports: Soda H&P Review of Systems - Review of Systems: Review Of Systems: See Below General: Reports: No Symptoms HEENT: Reports: No Symptoms Pulmonary: Reports: No Symptoms Cardiovascular: Reports: No Symptoms Gastrointestinal: Reports: No Symptoms Genitourinary: Reports: No Symptoms 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: Reports: No Symptoms Skin: Reports: No Symptoms Psychiatric: Reports: No Symptoms Neurological: Reports: No Symptoms Hematologic/Lymphatic: Reports: No Symptoms Immunologic: Reports: No Symptoms L&D Exam - Exam Exam: See Below - Vital Signs Weight: 68.039 kg - OB Specific Fundal Height In cm: 24 Contraction Intensity: Mild Movement: Active Heart Tones: Present - Exam General: Alert, Oriented HEENT: PERRLA, Conjunctiva Clear, EACs Clear, EOMI, Hearing Intact, Mucosa Moist & [place], Nares Patent, Normal Nasal Septum, Posterior Pharynx Clear, TMs Clear Neck: Supple, Trachea Midline Lungs: Clear to Auscultation, Normal Respiratory Effort Cardiovascular: Regular Rate, Regular Rhythm GI/Abdominal Exam: Normal Bowel Sounds, Soft, Non-Tender, No Organomegaly, No Distention, No Abnormal Bruit, No Mass, Pelvis Stable Rectal Exam: Normal Exam, Normal Rectal Tone Genitourinary: Normal external exam, Normal bimanual exam, Normal speculum exam Back Exam: Normal Inspection, Full Range of Motion, CVA Tenderness (L), CVA Tenderness (R) Extremities: Normal Inspection, Normal Range of Motion, Non-Tender, No Pedal Edema, Normal Capillary Refill Skin: Warm, Dry, Intact Neurological: Cranial Nerves Intact, Reflexes Equal Bilateral Psychiatric: Alert, Normal Affect, Normal Mood - Patient Data Lab Results Last 24 hrs: Laboratory Results - last 24 hr 09/05/19 09/05/19 Range/Units 17:30 18:14 WBC 15.19 H (4.0-11.0) K/uL RBC 3.62 L (4.30-5.90) M/uL Hgb 10.8 L (12.0-16.0) g/dL Hct 32.3 L (36.0-46.0) % MCV 89.2 (80.0-98.0) fL MCH 29.8 (27.0-32.0) pg MCHC 33.4 (31.0-37.0) g/dL RDW Std Deviation 45.1 (28.0-62.0) fl RDW Coeff of Gideon 14 (11.0-15.0) % Plt Count 253 (150-400) K/uL MPV 9.30 (7.40-12.00) fL Neut % (Auto) 82.8 H (48.0-80.0) % Lymph % (Auto) 6.8 L (16.0-40.0) % [place] % (Auto) 10.2 (0.0-15.0) % Eos % (Auto) 0.1 (0.0-7.0) % Baso % (Auto) 0.1 (0.0-1.5) % Neut # (Auto) 12.6 H (1.4-5.7) K/uL Lymph # (Auto) 1.0 (0.6-2.4) K/uL [place] # (Auto) 1.6 H (0.0-0.8) K/uL Eos # (Auto) 0.0 (0.0-0.7) K/uL Baso # (Auto) 0.0 (0.0-0.1) K/uL Nucleated RBC % 0.0 /100WBC Nucleated RBCs # 0 K/uL Urine Color YELLOW Urine Appearance CLOUDY Urine pH 7.5 (5.0-8.0) Ur Specific [place] 1.015 (1.001-1.035) Urine Protein 30 H (NEGATIVE) mg/dL Urine Glucose (UA) NEGATIVE (NEGATIVE) mg/dL Urine Ketones NEGATIVE (NEGATIVE) mg/dL Urine Occult Blood SMALL H (NEGATIVE) Urine Nitrite POSITIVE H (NEGATIVE) Urine Bilirubin NEGATIVE (NEGATIVE) Urine Urobilinogen 1.0 (<2.0) EU/dL Ur Leukocyte Esterase LARGE H (NEGATIVE) Result Diagrams: 09/05/19 18:14 Problem List Initiated/Reviewed/Updated: Yes Orders Last 24hrs: Active Orders 24 hr Category Date Time Status Patient Status [ADT] Routine ADT 09/05/19 17:59 Active Non Stress Test [RC] PER UNIT ROUTINE Care 09/05/19 17:59 Active Up ad Ramya [RC] ASDIRECTED Care 09/05/19 17:59 Active Vaginal Exam [RC] Click to Edit Care 09/05/19 17:59 Active Vital Signs [RC] PER UNIT ROUTINE Care 09/05/19 17:59 Active Lactated Ringers [Ringers, Lactated] 1,000 ml Med 09/05/19 18:00 Active IV BOLUS Resuscitation Status Routine Resus Stat 09/05/19 17:59 Ordered Medication Orders Lactated Ringer's (Ringers, Lactated) 1,000 mls @ 500 mls/hr IV BOLUS MIKEY Last Admin: 09/05/19 18:20 Dose: 999 mls/hr Assessment/Plan Comment:: [id number] wks with UTI admited for IV antibiotic.
[2019-09-05] MEDS: Acetaminophen 500 MG Tab PO PRN (19:44)
[2019-09-05] MEDS: Lactated Ringers 1,000 ML IV SCH (19:48)
[2019-09-05] MEDS: Ondansetron 4 MG/2 ML SDV IVPUSH PRN (20:21)
[2019-09-06] MEDS: ceFAZolin 1 GM in Premix Bag 1 BAG IV SCH ×3 (02:48→19:29)
[2019-09-06] MEDS: Lactated Ringers 1,000 ML IV SCH ×2 (02:48→09:36)
[2019-09-06] MEDS: Acetaminophen 500 MG Tab PO PRN ×2 (03:02→14:34)
--- NOTE | 2019-09-06 11:09 | PCM.PN ---
- General Info Date of Service: 09/06/19 Functional Status: Reports: Pain Controlled - Review of Systems General: Reports: No Symptoms HEENT: Reports: No Symptoms Pulmonary: Reports: No Symptoms Cardiovascular: Reports: No Symptoms Gastrointestinal: Reports: No Symptoms Genitourinary: Reports: No Symptoms 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: Reports: No Symptoms Skin: Reports: No Symptoms Neurological: Reports: No Symptoms Psychiatric: Reports: No Symptoms - Patient Data Vitals - Most Recent: Last Vital Signs Temp 38.8 C H 09/06/19 03:52 Pulse 100 09/06/19 03:52 Resp 18 09/06/19 03:52 BP 100/57 L 09/06/19 03:52 Pulse Ox 97 09/05/19 20:00 Weight - Most Recent: 68.039 kg I&O - Last 24 Hours: Intake & Output 09/05/19 09/06/19 09/06/19 22:59 06:59 14:59 Intake Total 1228 Output Total 1200 Balance 28 Lab Results Last 24 Hours: Laboratory Results - last 24 hr 09/05/19 09/05/19 09/06/19 Range/Units 17:30 18:14 08:05 WBC 15.19 H 14.34 H (4.0-11.0) K/uL RBC 3.62 L 3.04 L (4.30-5.90) M/uL Hgb 10.8 L 9.0 L (12.0-16.0) g/dL Hct 32.3 L 27.3 L (36.0-46.0) % MCV 89.2 89.8 (80.0-98.0) fL MCH 29.8 29.6 (27.0-32.0) pg MCHC 33.4 33.0 (31.0-37.0) g/dL RDW Std Deviation 45.1 45.7 (28.0-62.0) fl RDW Coeff of Gideon 14 14 (11.0-15.0) % Plt Count 253 219 (150-400) K/uL MPV 9.30 9.20 (7.40-12.00) fL Neut % (Auto) 82.8 H 75.8 (48.0-80.0) % Lymph % (Auto) 6.8 L 9.5 L (16.0-40.0) % [place] % (Auto) 10.2 14.3 (0.0-15.0) % Eos % (Auto) 0.1 0.3 (0.0-7.0) % Baso % (Auto) 0.1 0.1 (0.0-1.5) % Neut # (Auto) 12.6 H 10.9 H (1.4-5.7) K/uL Lymph # (Auto) 1.0 1.4 (0.6-2.4) K/uL [place] # (Auto) 1.6 H 2.1 H (0.0-0.8) K/uL Eos # (Auto) 0.0 0.1 (0.0-0.7) K/uL Baso # (Auto) 0.0 0.0 (0.0-0.1) K/uL Nucleated RBC % 0.0 0.0 /100WBC Nucleated RBCs # 0 0 K/uL Urine Color YELLOW Urine Appearance CLOUDY Urine pH 7.5 (5.0-8.0) Ur Specific [place] 1.015 (1.001-1.035) Urine Protein 30 H (NEGATIVE) mg/dL Urine Glucose (UA) NEGATIVE (NEGATIVE) mg/dL Urine Ketones NEGATIVE (NEGATIVE) mg/dL Urine Occult Blood SMALL H (NEGATIVE) Urine Nitrite POSITIVE H (NEGATIVE) Urine Bilirubin NEGATIVE (NEGATIVE) Urine Urobilinogen 1.0 (<2.0) EU/dL Ur Leukocyte Esterase LARGE H (NEGATIVE) Med Orders - Current: Current Medications Acetaminophen (Tylenol Extra Strength) 1,000 mg PO Q6H PRN PRN Reason: Fever Last Admin: 09/06/19 03:02 Dose: 1,000 mg Lactated Ringer's (Ringers, Lactated) 1,000 mls @ 500 mls/hr IV BOLUS [facility] Last Admin: 09/05/19 18:20 Dose: 999 mls/hr Cefazolin Sodium/Dextrose 1 gm (/ Premix) 50 mls @ 100 mls/hr IV Q8H [facility] Last Admin: 09/06/19 02:48 Dose: 100 mls/hr Lactated Ringer's (Ringers, Lactated) 1,000 mls @ 150 mls/hr IV ASDIRECTED [facility] Last Admin: 09/06/19 09:36 Dose: 150 mls/hr Ondansetron HCl (Zofran) 4 mg IVPUSH Q4H PRN PRN Reason: Nausea/Vomiting Last Admin: 09/05/19 20:21 Dose: 4 mg Discontinued Medications Cefazolin Sodium/Dextrose 2 gm (/ Premix) 50 mls @ 100 mls/hr IV ONETIME ONE Stop: 09/05/19 18:29 Last Admin: 09/05/19 19:00 Dose: 100 mls/hr - Exam General: Alert, Oriented HEENT: Pupils Equal, Pupils Reactive, EOMI, Mucous Membr. Moist/[place] Neck: Supple Lungs: Clear to Auscultation, Normal Respiratory Effort Cardiovascular: Regular Rate, Regular Rhythm GI/Abdominal Exam: Normal Bowel Sounds, Soft, Non-Tender, No Organomegaly, No Distention, No Abnormal Bruit, No Mass, Pelvis Stable (Female) Exam: Normal External Exam, Normal Speculum Exam, Normal Bimanual Exam Back Exam: Normal Inspection, Full Range of Motion Extremities: Normal Inspection, Normal Range of Motion, Non-Tender, No Pedal Edema, Normal Capillary Refill Skin: Warm, Dry, Intact Wound/Incisions: Healing Well Neurological: No New Focal Deficit Psy/Mental Status: Alert, Normal Affect, Normal Mood EKG INTERPRETATION Rhythm: NSR Tichnor: Normal P-Wave: Present QRS: Normal ST-T: Normal QT: Normal - Problem List Review Problem List Initiated/Reviewed/Updated: Yes - My Orders Last 24 Hours: My Active Orders 09/05/19 17:59 Patient Status [ADT] Routine Non Stress Test [RC] PER UNIT ROUTINE Up ad Ramya [RC] ASDIRECTED Vaginal Exam [RC] Click to Edit Vital Signs [RC] PER UNIT ROUTINE Resuscitation Status Routine 09/05/19 18:00 Lactated Ringers [Ringers, Lactated] 1,000 ml IV BOLUS 09/05/19 19:10 Admission Status [Patient Status] [ADT] Routine 09/05/19 19:19 Ondansetron [Zofran] 4 mg IVPUSH Q4H PRN 09/05/19 19:20 Acetaminophen [Tylenol Extra Strength] 1,000 mg PO Q6H PRN 09/05/19 19:30 Lactated Ringers [Ringers, Lactated] 1,000 ml IV ASDIRECTED 09/06/19 03:00 ceFAZolin [Ancef] 1 gm Premix Bag 1 bag IV Q8H 09/06/19 Breakfast Regular Diet [DIET] - Assessment Assessment:: Pt afebrile no N&V. will keep her for another 24 hours of Iv antibiotic. - Plan Plan:: [id number] wks with UTI admited for IV antibiotic.
[2019-09-06] MEDS: Ondansetron 4 MG/2 ML SDV IVPUSH PRN (16:33)
[2019-09-07] MEDS: ceFAZolin 1 GM in Premix Bag 1 BAG IV SCH (03:23)
--- NOTE | 2019-09-07 08:53 | PCM.DCSUM1 ---
Discharge Summary - Hospital Course Free Text/Narrative:: Discharge home. Follow up in 1 week in the clinic. Diagnosis: Stroke: No - Discharge Data Discharge Date: 09/07/19 Discharge Disposition: Home, Self-Care 01 Condition: Good - Referral to Home Health Primary Care Physician: Deanne Andujar CNM - Patient Instructions Diet: Usual Diet as Tolerated Activity: As Tolerated, Rest and Relax Today Driving: May Drive Today Showering/Bathing: May Shower - Discharge Plan *PRESCRIPTION DRUG MONITORING PROGRAM REVIEWED*: Not Applicable *COPY OF PRESCRIPTION DRUG MONITORING REPORT IN PATIENT KRIS: Not Applicable Home Medications: Home Meds Pnv No.95/Ferrous Fum/Folic AC [ Caplet] 1 tab PO DAILY 09/05/19 [ History] Oxygen Therapy Mode: Room Air - Discharge Summary/Plan Comment DC Time >30 min.: Yes - General Info Admission Dx/Problem (Free Text: Patient Status Order with Admit Dx/Problem 09/05/19 17:59 Patient Status [ADT] Routine Admission Diagnosis/Problem Admission Diagnosis/Problem Fever Functional Status: Reports: Pain Controlled, Tolerating Diet, Ambulating, Urinating - Review of Systems General: Reports: No Symptoms HEENT: Reports: No Symptoms Pulmonary: Reports: No Symptoms Cardiovascular: Reports: No Symptoms Gastrointestinal: Reports: No Symptoms Genitourinary: Reports: No Symptoms 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: Reports: No Symptoms Skin: Reports: No Symptoms Neurological: Reports: No Symptoms Psychiatric: Reports: No Symptoms - Patient Data Vitals - Most Recent: Last Vital Signs Temp 37.2 C 09/07/19 03:30 Pulse 75 09/07/19 03:30 Resp 16 09/07/19 03:30 BP 105/62 09/07/19 03:30 Pulse Ox 96 09/07/19 00:00 Weight - Most Recent: 68.039 kg Lab Results - Last 24 hrs: Laboratory Results - last 24 hr 09/07/19 Range/Units 06:00 WBC 11.13 H (4.0-11.0) K/uL RBC 3.07 L (4.30-5.90) M/uL Hgb 8.9 L (12.0-16.0) g/dL Hct 27.8 L (36.0-46.0) % MCV 90.6 (80.0-98.0) fL MCH 29.0 (27.0-32.0) pg MCHC 32.0 (31.0-37.0) g/dL RDW Std Deviation 45.6 (28.0-62.0) fl RDW Coeff of Gideon 14 (11.0-15.0) % Plt Count 258 (150-400) K/uL MPV 9.60 (7.40-12.00) fL Neut % (Auto) 71.8 (48.0-80.0) % Lymph % (Auto) 14.4 L (16.0-40.0) % [place] % (Auto) 13.0 (0.0-15.0) % Eos % (Auto) 0.7 (0.0-7.0) % Baso % (Auto) 0.1 (0.0-1.5) % Neut # (Auto) 8.0 H (1.4-5.7) K/uL Lymph # (Auto) 1.6 (0.6-2.4) K/uL [place] # (Auto) 1.5 H (0.0-0.8) K/uL Eos # (Auto) 0.1 (0.0-0.7) K/uL Baso # (Auto) 0.0 (0.0-0.1) K/uL Nucleated RBC % 0.0 /100WBC Nucleated RBCs # 0 K/uL Med Orders - Current: Current Medications Acetaminophen (Tylenol Extra Strength) 1,000 mg PO Q6H PRN PRN Reason: Fever Last Admin: 09/06/19 14:34 Dose: 1,000 mg Lactated Ringer's (Ringers, Lactated) 1,000 mls @ 500 mls/hr IV BOLUS [facility] Last Admin: 09/05/19 18:20 Dose: 999 mls/hr Cefazolin Sodium/Dextrose 1 gm (/ Premix) 50 mls @ 100 mls/hr IV Q8H [facility] Last Admin: 09/07/19 03:23 Dose: 100 mls/hr Lactated Ringer's (Ringers, Lactated) 1,000 mls @ 150 mls/hr IV ASDIRECTED [facility] Last Admin: 09/06/19 09:36 Dose: 150 mls/hr Ondansetron HCl (Zofran) 4 mg IVPUSH Q4H PRN PRN Reason: Nausea/Vomiting Last Admin: 09/06/19 16:33 Dose: 4 mg Discontinued Medications Cefazolin Sodium/Dextrose 2 gm (/ Premix) 50 mls @ 100 mls/hr IV ONETIME ONE Stop: 09/05/19 18:29 Last Admin: 09/05/19 19:00 Dose: 100 mls/hr - Exam General: Reports: Alert, Oriented, Cooperative, No Acute Distress Lungs: Reports: Clear to Auscultation, Normal Respiratory Effort Cardiovascular: Reports: Regular Rate, Regular Rhythm GI/Abdominal Exam: Soft, Non-Tender (Female) Exam: Deferred Rectal (Female) Exam: Deferred Back Exam: Reports: Full Range of Motion Extremities: Normal Inspection, Normal Range of Motion, Non-Tender, No Pedal Edema Skin: Reports: Warm, Dry, Intact Neurological: Reports: No New Focal Deficit, Normal Speech, Normal Tone Psy/Mental Status: Reports: Alert, Normal Affect, Normal Mood
== END 2019-09-07 09:45 | disposition home or self-care (01) ==
LOC: MW.OBCHECK 17:13 → MW.OB 17:17 → MW.OBCHECK 19:10 → MW.OB 19:10
PROVIDERS: ADMIT Obstetrics & Gynecology; ATTEND Obstetrics & Gynecology
DX: O23.42 Unspecified infection of urinary tract in pregnancy, second trimester (principal); O99.89 Other specified diseases and conditions complicating pregnancy, childbirth and the puerperium; G43.909 Migraine, unspecified, not intractable, without status migrainosus; Z3A.23 23 weeks gestation of pregnancy
CPT/HCPCS: 36415; 59025; 81003; 85025; 96361; 96365; 96375; 96376; A9270; G0378; J0690; J2405; J7120

== ENCOUNTER 2019-12-18 17:26 | Inpatient (IN) | payer OTHER ==
[2019-12-18] MEDS ORDERED: Butorphanol 1 MG/ML SDV IVPUSH PRN (17:46)
[2019-12-18] MEDS ORDERED: Tranexamic Acid 1,000 MG in Sodium Chloride 0.9% 100 ML IV PRN (17:46)
[2019-12-18] MEDS ORDERED: Methylergonovine 0.2 MG/1 ML Amp IM PRN (17:46)
[2019-12-18] MEDS ORDERED: Carboprost Tromethamine 250 MCG/1 ML Amp IM PRN (17:46)
[2019-12-18] MEDS ORDERED: Nalbuphine 10 MG/1 ML Vial IVPUSH PRN (17:46)
[2019-12-18] MEDS ORDERED: Misoprostol 200 MCG Tab PO PRN (17:46)
[2019-12-18] MEDS ORDERED: Sodium Chloride 0.9% 10 ML Syringe FLUSH PRN (17:46)
[2019-12-18] MEDS ORDERED: Lidocaine 1% 50 ML MDV INJECT PRN (17:46)
[2019-12-18] MEDS ORDERED: Water For Irrigation,Sterile 1,000 ML Container IRR PRN (17:46)
[2019-12-18] MEDS ORDERED: Sodium Chloride 0.9% 10 ML SDV IV PRN (17:46)
[2019-12-18] MEDS ORDERED: Oxytocin/0.9 % Sodium Chloride 30 UNIT/500 ML BAG IV SCH (18:00)
[2019-12-18] MEDS: Lactated Ringers 1,000 ML IV SCH ×2 (18:00→18:53)
--- NOTE | 2019-12-18 18:14 | PCM.LDHP ---
L&D History of Present Illness - General Date of Service: 12/18/19 Admit Problem/Dx: Patient Status Order with Admit Dx/Problem 12/18/19 17:46 Patient Status [ADT] Routine Admission Diagnosis/Problem Admission Diagnosis/Problem -related examination 12/18/19 18:08 19yo EDC 12/26/2019 38 6/7wks She comes in labor, O+, R-non imm, GBS neg. Source of Information: Patient History Limitations: Reports: No Limitations - History of Present Illness Improves with: Reports: None Worsens with: Reports: None Associated Symptoms: Reports: N - Related Data Allergies/Adverse Reactions: Allergies Allergy/AdvReac Type Severity Reaction Status Date / Time No Known Allergies Allergy Verified 05/30/19 12:20 Home Medications: Home Meds Pnv No.95/Ferrous Fum/Folic AC [ Caplet] 1 tab PO DAILY 09/05/19 [ History] Past Medical History HEENT History: Reports: Impaired Vision, Otitis Media, Other (See Below) Cardiovascular History: Reports: Other (See Below) Other Cardiovascular History: tachycardia Respiratory History: Reports: None Gastrointestinal History: Reports: None Genitourinary History: Reports: UTI, Recurrent 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: 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 History: Reports: None Neurological History: Reports: Migraines, Seizure, Other (See Below) Other Neuro History: last seizure february 2017 Psychiatric History: Reports: Anxiety, Depression Endocrine/Metabolic History: Reports: None Hematologic History: Reports: None Dermatologic History: Reports: None - Infectious Disease History Infectious Disease History: Reports: Chicken Pox - Past Surgical History HEENT Surgical History: Reports: Adenoidectomy, Tonsillectomy Other HEENT Surgeries/Procedures: wears eye glasses Cardiovascular Surgical History: Reports: None Respiratory Surgical History: Reports: None GI Surgical History: Reports: None Female Surgical History: Reports: None Endocrine Surgical History: Reports: None 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 Surgical History: Reports: None Dermatological Surgical History: Reports: None Social & Family History - Family History Family Medical History: Noncontributory - Caffeine Use Caffeine Use: Reports: Soda H&P Review of Systems - Review of Systems: Review Of Systems: See Below General: Reports: No Symptoms HEENT: Reports: No Symptoms Pulmonary: Reports: No Symptoms Cardiovascular: Reports: No Symptoms Gastrointestinal: Reports: No Symptoms Genitourinary: Reports: No Symptoms 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: Reports: No Symptoms Skin: Reports: No Symptoms Psychiatric: Reports: No Symptoms Neurological: Reports: No Symptoms Hematologic/Lymphatic: Reports: No Symptoms Immunologic: Reports: No Symptoms L&D Exam - Exam Exam: See Below - Vital Signs Weight: 79.379 kg - OB Specific Contraction Intensity: Moderate Movement: Active Heart Tones: Present Heart Tones per Min: 130 Heart Rate (FHR) Variability: Moderate (6-25 bmp) Presentation: Vertex - Tabares Score Tabares Score Cervix Position: Anterior Tabares Score Consistency: Soft Tabares Score Effacement: >80% Tabares Score Dilation: > 5 cm Tabares Score 's Station: -2 Tabares Score Total: 11 - Exam General: Alert, Oriented, Cooperative HEENT: Hearing Intact Lungs: Normal Respiratory Effort GI/Abdominal Exam: Soft, Non-Tender Rectal Exam: Deferred Genitourinary: Normal external exam, Normal bimanual exam, Cervical dilitation. No: Cervical fluid, Vaginal bleeding Back Exam: Normal Inspection, Full Range of Motion Extremities: Normal Range of Motion Skin: Warm, Dry, Intact Neurological: Reflexes Equal Bilateral, Normal Gait, Normal Speech, Normal Tone , Sensation Intact Psychiatric: Alert, Normal Affect, Normal Mood - Problem List (1) Supervision of normal IUP (intrauterine ) in multigravida SNOMED Code(s): 539554341, 293872588, 414243546 ICD Code: Z34.80 - ENCOUNTER FOR SUPRVSN OF NORMAL , UNSP TRIMESTER Status: Acute Priority: High Current Visit: Yes Qualifiers: Trimester: third trimester Qualified Code(s): Z34.83 - Encounter for supervision of other normal , third trimester Problem List Initiated/Reviewed/Updated: Yes Orders Last 24hrs: Active Orders 24 hr Category Date Time Status Patient Status [ADT] Routine ADT 12/18/19 17:46 Active Heart Tones [RC] CONTINUOUS Care 12/18/19 17:46 Active Non Stress Test [RC] PER UNIT ROUTINE Care 12/18/19 17:46 Active May Shower [RC] ASDIRECTED Care 12/18/19 17:46 Active Notify Provider [RC] PRN Care 12/18/19 17:46 Active Up ad Ramya [RC] ASDIRECTED Care 12/18/19 17:46 Active Vaginal Exam [RC] PRN Care 12/18/19 17:46 Active Vital Signs [RC] PER UNIT ROUTINE Care 12/18/19 17:46 Active CBC W/O DIFF,HEMOGRAM [HEME] Routine Lab 12/18/19 17:46 Ordered RAPID PLASMA REAGIN, QUANT [REF] Routine Lab 12/18/19 17:46 Ordered TYPE AND SCREEN [BBK] Routine Lab 12/18/19 17:46 Ordered Butorphanol [Stadol] Med 12/18/19 17:46 Active 1 mg IVPUSH ASDIRECTED PRN Carboprost Tromethamine [Hemabate DS] Med 12/18/19 17:46 Active 250 mcg IM ASDIRECTED PRN Lactated Ringers [Ringers, Lactated] 1,000 ml Med 12/18/19 18:00 Active IV ASDIRECTED Lidocaine 1% [Xylocaine 1%] Med 12/18/19 17:46 Active 50 ml INJECT ONETIME PRN Methylergonovine [Methergine] Med 12/18/19 17:46 Active 0.2 mg IM ASDIRECTED PRN Nalbuphine [Nubain] Med 12/18/19 17:46 Active 10 mg IVPUSH ASDIRECTED PRN Oxytocin/0.9 % Sodium Chloride [Oxytocin 30 Unit/500 ML Med 12/18/19 18:00 Active -NS] 30 unit in 500 ml IV TITRATE Sodium Chloride 0.9% [Normal Saline] Med 12/18/19 17:46 Active 10 ml IV ASDIRECTED PRN Sodium Chloride 0.9% [Saline Flush] Med 12/18/19 17:46 Active 10 ml FLUSH ASDIRECTED PRN Tranexamic Acid [Cyklokapron] 1,000 mg Med 12/18/19 17:46 Active Sodium Chloride 0.9% [Normal Saline] 100 ml IV ONETIME Water For Irrigation,Sterile [Sterile Water for Med 12/18/19 17:46 Active Irrigation] 1,000 ml IRR ASDIRECTED PRN miSOPROStoL [Cytotec] Med 12/18/19 17:46 Active 200 mcg PO ONETIME PRN Scalp Electrode [WOMSER] Per Unit Routine Oth 12/18/19 17:46 Ordered Peripheral IV Insertion Adult [OM.PC] Routine Oth 12/18/19 17:46 Ordered Resuscitation Status Routine Resus Stat 12/18/19 17:46 Ordered Medication Orders Butorphanol Tartrate (Stadol) 1 mg IVPUSH ASDIRECTED PRN PRN Reason: Pain Carboprost Tromethamine (Hemabate Ds) 250 mcg IM ASDIRECTED PRN PRN Reason: Post Hemorrhage Lactated Ringer's (Ringers, Lactated) 1,000 mls @ 150 mls/hr IV ASDIRECTED [facility] Oxytocin/Sodium Chloride (Oxytocin 30 Unit/500 Ml-Ns) 30 unit in 500 mls @ 999 mls/hr IV TITRATE MIKEY Tranexamic Acid 1,000 mg/ (Sodium Chloride) 110 mls @ 660 mls/hr IV ONETIME PRN PRN Reason: Bleeding Lidocaine HCl (Xylocaine 1%) 50 ml INJECT ONETIME PRN PRN Reason: Laceration repair Methylergonovine Maleate (Methergine) 0.2 mg IM ASDIRECTED PRN PRN Reason: Post Hemorrhage Misoprostol (Cytotec) 200 mcg PO ONETIME PRN PRN Reason: Post Hemorrhage Nalbuphine HCl (Nubain) 10 mg IVPUSH ASDIRECTED PRN PRN Reason: Pain (severe 7-10) Sodium Chloride (Saline Flush) 10 ml FLUSH ASDIRECTED PRN PRN Reason: Keep Vein Open Sodium Chloride (Normal Saline) 10 ml IV ASDIRECTED PRN PRN Reason: IV Use Sterile Water (Sterile Water For Irrigation) 1,000 ml IRR ASDIRECTED PRN PRN Reason: delivery Assessment/Plan Comment:: Labor A: 19yo EDC 12/26/2019 38 6/7wks She comes in labor, O+, R-non imm, GBS neg. P: Admit, epidural now, anticipate . Dr Santos updated
[2019-12-18] MEDS ORDERED: fentaNYL 100 MCG/2 ML SDV ONE (18:31)
[2019-12-18] MEDS ORDERED: Ropivacaine HCl/PF 100 ML ONE (18:31)
--- NOTE | 2019-12-18 18:53 | PCM.PRNOTE ---
- Free Text/Narrative Note: Anes Note Patient requests epidural for L&D> Sitting position, Level L3-L4 midline approach. Sterile technique. Chloraprep scrub to lumbar area. Sterile fenestrated drape applied. Epidural space easily achieved wingle attempt using EZIO technique. EZIO at 3 cm. Cath threaded 5 cm with ease. Cath secured at skin at 9 cm using sterile clear adhesive dressing. 1840 Test 3 cc 1.5 lido with epi negative 1843 Load 10 cc 0.2% ropivicaine with 1 mcg cc fentanyl in slow divided doses. 1848 Pumps started with 90 cc same solution at 8 cc hr with 6 cc q 20 min prn bolus. Christopher well. Time with patient [phone] Jose Goldman [employer]
--- NOTE | 2019-12-18 18:54 | PCM.PREANE ---
Preanesthetic Assessment - Anesthesia/Transfusion/Family Hx Anesthesia History: Prior Anesthesia Without Reaction Family History of Anesthesia Reaction: No - Physical Assessment NPO Status Date: 12/18/19 NPO Status Time: 11:00 Height: 1.7 m Weight: 79.379 kg ASA Class: 1 - Lab Values: Laboratory Last Values WBC 15.62 K/uL (4.0-11.0) H 12/18/19 18:10 RBC 3.84 M/uL (4.30-5.90) L 12/18/19 18:10 Hgb 9.8 g/dL (12.0-16.0) L 12/18/19 18:10 Hct 31.1 % (36.0-46.0) L 12/18/19 18:10 MCV 81.0 fL (80.0-98.0) 12/18/19 18:10 MCH 25.5 pg (27.0-32.0) L 12/18/19 18:10 MCHC 31.5 g/dL (31.0-37.0) 12/18/19 18:10 RDW Std Deviation 43.6 fl (28.0-62.0) 12/18/19 18:10 RDW Coeff of Gideon 15 % (11.0-15.0) 12/18/19 18:10 Plt Count 226 K/uL (150-400) 12/18/19 18:10 MPV 9.50 fL (7.40-12.00) 12/18/19 18:10 Nucleated RBC % 0.0 /100WBC 12/18/19 18:10 Nucleated RBCs # 0 K/uL 12/18/19 18:10 - Allergies Allergies/Adverse Reactions: Allergies Allergy/AdvReac Type Severity Reaction Status Date / Time No Known Allergies Allergy Verified 05/30/19 12:20 - Acknowledgements Anesthesia Type Planned: Epidural Pt an Appropriate Candidate for the Planned Anesthesia: Yes Alternatives and Risks of Anesthesia Discussed w Pt/Guardian: Yes Pt/Guardian Understands and Agrees with Anesthesia Plan: Yes PreAnesthesia Questionnaire HEENT History: Reports: Impaired Vision, Otitis Media, Other (See Below) Cardiovascular History: Reports: Other (See Below) Other Cardiovascular History: tachycardia Respiratory History: Reports: None Gastrointestinal History: Reports: None Genitourinary History: Reports: UTI, Recurrent [employer]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: 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 History: Reports: None Neurological History: Reports: Migraines, Seizure, Other (See Below) Other Neuro History: last seizure february 2017 Psychiatric History: Reports: Anxiety, Depression Endocrine/Metabolic History: Reports: None Hematologic History: Reports: None Dermatologic History: Reports: None - Infectious Disease History Infectious Disease History: Reports: Chicken Pox - Past Surgical History HEENT Surgical History: Reports: Adenoidectomy, Tonsillectomy Other HEENT Surgeries/Procedures: wears eye glasses Cardiovascular Surgical History: Reports: None Respiratory Surgical History: Reports: None GI Surgical History: Reports: None Female Surgical History: Reports: None Endocrine Surgical History: Reports: None 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 Surgical History: Reports: None Dermatological Surgical History: Reports: None - HOME MEDS Home Medications: Home Meds Pnv No.95/Ferrous Fum/Folic AC [ Caplet] 1 tab PO DAILY 09/05/19 [ History] - CURRENT (IN HOUSE) MEDS Current Meds: Current Medications Butorphanol Tartrate (Stadol) 1 mg IVPUSH ASDIRECTED PRN PRN Reason: Pain Carboprost Tromethamine (Hemabate Ds) 250 mcg IM ASDIRECTED PRN PRN Reason: Post Hemorrhage Lactated Ringer's (Ringers, Lactated) 1,000 mls @ 150 mls/hr IV ASDIRECTED [facility] Last Admin: 12/18/19 18:53 Dose: 999 mls/hr Oxytocin/Sodium Chloride (Oxytocin 30 Unit/500 Ml-Ns) 30 unit in 500 mls @ 999 mls/hr IV TITRATE [facility] Tranexamic Acid 1,000 mg/ (Sodium Chloride) 110 mls @ 660 mls/hr IV ONETIME PRN PRN Reason: Bleeding Lidocaine HCl (Xylocaine 1%) 50 ml INJECT ONETIME PRN PRN Reason: Laceration repair Methylergonovine Maleate (Methergine) 0.2 mg IM ASDIRECTED PRN PRN Reason: Post Hemorrhage Misoprostol (Cytotec) 200 mcg PO ONETIME PRN PRN Reason: Post Hemorrhage Nalbuphine HCl (Nubain) 10 mg IVPUSH ASDIRECTED PRN PRN Reason: Pain (severe 7-10) Sodium Chloride (Saline Flush) 10 ml FLUSH ASDIRECTED PRN PRN Reason: Keep Vein Open Sodium Chloride (Normal Saline) 10 ml IV ASDIRECTED PRN PRN Reason: IV Use Sterile Water (Sterile Water For Irrigation) 1,000 ml IRR ASDIRECTED PRN PRN Reason: delivery Discontinued Medications Fentanyl (Sublimaze) Confirm Administered Dose 100 mcg .ROUTE .[employer]-MED ONE Stop: 12/18/19 18:32 Ropivacaine (Naropin 0.2%) Confirm Administered Dose 100 mls @ as directed .ROUTE .WerckerMED ONE Stop: 12/18/19 18:32
--- NOTE | 2019-12-18 20:41 | PCM.DEL ---
L & D Note - General Info Date of Service: 12/18/19 Mother's Due Date: 12/26/19 - Delivery Note Labor: Spontaneous Delivery Outcome: Livebirth Infant Delivery Method: Spontaneous Vaginal Delivery-Single Delivery Mode: Spontaneous Presentation: Vertex Nuchal Cord: None Anesthesia Type: Epidural Amniotic Fluid Description: Clear Episiotomy Type: None Laceration: None Placenta: Manual Removal, Retained (Dr Santos called to come to bedside for retained placenta ) Cord: 3 Vessels Estimated Blood Loss: 200 Resuscitation Needed: No Score 1 min: 8 Score 5 min: 9 Second Stage Interventions: Reports: Pushing, Pulls Own Legs Back Delivery Comments (Free Text/Narrative):: of viable female, Head delivered with good pushing, shoulders and body followed easily. with spont cry placed on mothers abd. RN at for evaluation. Delayed cord clamping. Pitocin to IVF. Cord clamped and cut. Placenta retained [address] Santos came to bedside and manually removed the placenta. Inspection noted intact perineum. EBL 200cc. APGARS 8/9 Wt: 7lb 7oz. Mom and baby stable - General Info Date of Service: 12/18/19 Admission Dx/Problem (Free Text): Patient Status Order with Admit Dx/Problem 12/18/19 17:46 Patient Status [ADT] Routine Admission Diagnosis/Problem Admission Diagnosis/Problem -related examination 12/18/19 18:08 19yo EDC 12/26/2019 38 6/7wks She comes in labor, O+, R-non imm, GBS neg. Functional Status: Reports: Pain Controlled, Tolerating Diet - Review of Systems General: Reports: No Symptoms HEENT: Reports: No Symptoms Pulmonary: Reports: No Symptoms Cardiovascular: Reports: No Symptoms Gastrointestinal: Reports: No Symptoms Genitourinary: Reports: No Symptoms 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: Reports: No Symptoms Skin: Reports: No Symptoms Neurological: Reports: No Symptoms Psychiatric: Reports: No Symptoms - Patient Data Weight - Most Recent: 79.379 kg Lab Results Last 24 Hours: Laboratory Results - last 24 hr 12/18/19 12/18/19 Range/Units 18:10 18:10 WBC 15.62 H (4.0-11.0) K/uL RBC 3.84 L (4.30-5.90) M/uL Hgb 9.8 L (12.0-16.0) g/dL Hct 31.1 L (36.0-46.0) % MCV 81.0 (80.0-98.0) fL MCH 25.5 L (27.0-32.0) pg MCHC 31.5 (31.0-37.0) g/dL RDW Std Deviation 43.6 (28.0-62.0) fl RDW Coeff of Gideon 15 (11.0-15.0) % Plt Count 226 (150-400) K/uL MPV 9.50 (7.40-12.00) fL Nucleated RBC % 0.0 /100WBC Nucleated RBCs # 0 K/uL Blood Type O POSITIVE Antibody Screen NEGATIVE Med Orders - Current: Current Medications Butorphanol Tartrate (Stadol) 1 mg IVPUSH ASDIRECTED PRN PRN Reason: Pain Carboprost Tromethamine (Hemabate Ds) 250 mcg IM ASDIRECTED PRN PRN Reason: Post Hemorrhage Lactated Ringer's (Ringers, Lactated) 1,000 mls @ 150 mls/hr IV ASDIRECTED [facility] Last Infusion: 12/18/19 19:09 Dose: 150 mls/hr Oxytocin/Sodium Chloride (Oxytocin 30 Unit/500 Ml-Ns) 30 unit in 500 mls @ 999 mls/hr IV TITRATE [facility] Last Admin: 12/18/19 19:44 Dose: 999 mls/hr Tranexamic Acid 1,000 mg/ (Sodium Chloride) 110 mls @ 660 mls/hr IV ONETIME PRN PRN Reason: Bleeding Lidocaine HCl (Xylocaine 1%) 50 ml INJECT ONETIME PRN PRN Reason: Laceration repair Methylergonovine Maleate (Methergine) 0.2 mg IM ASDIRECTED PRN PRN Reason: Post Hemorrhage Misoprostol (Cytotec) 200 mcg PO ONETIME PRN PRN Reason: Post Hemorrhage Nalbuphine HCl (Nubain) 10 mg IVPUSH ASDIRECTED PRN PRN Reason: Pain (severe 7-10) Sodium Chloride (Saline Flush) 10 ml FLUSH ASDIRECTED PRN PRN Reason: Keep Vein Open Sodium Chloride (Normal Saline) 10 ml IV ASDIRECTED PRN PRN Reason: IV Use Sterile Water (Sterile Water For Irrigation) 1,000 ml IRR ASDIRECTED PRN PRN Reason: delivery Discontinued Medications Fentanyl (Sublimaze) Confirm Administered Dose 100 mcg .ROUTE .STK-MED ONE Stop: 12/18/19 18:32 Ropivacaine (Naropin 0.2%) Confirm Administered Dose 100 mls @ as directed .ROUTE .STK-MED ONE Stop: 12/18/19 18:32 - Exam General: Alert, Oriented Lungs: Normal Respiratory Effort GI/Abdominal Exam: Soft, Non-Tender (Female) Exam: Normal External Exam, Vaginal Bleeding. No: Vaginal Lesions, Vaginal Tears Back Exam: Full Range of Motion Extremities: Normal Inspection, No Pedal Edema, Normal Capillary Refill Skin: Warm, Dry, Intact Neurological: No New Focal Deficit, Normal Speech, Normal Tone, Sensation Intact Psy/Mental Status: Alert, Normal Affect, Normal Mood - Problem List & Annotations (1) Supervision of normal IUP (intrauterine ) in multigravida SNOMED Code(s): 723540082, 581350179, 326948980 Code(s): Z34.80 - ENCOUNTER FOR SUPRVSN OF NORMAL , UNSP TRIMESTER Status: Acute Priority: High Current Visit: Yes Qualifiers: Trimester: third trimester Qualified Code(s): Z34.83 - Encounter for supervision of other normal , third trimester (2) (normal spontaneous vaginal delivery) SNOMED Code(s): 35975743, 381490296 Code(s): O80 - ENCOUNTER FOR FULL-TERM UNCOMPLICATED DELIVERY Status: Acute Priority: High Current Visit: No - Problem List Review Problem List Initiated/Reviewed/Updated: Yes - Plan Plan:: Labor A: 19yo EDC 12/26/2019 38 6/7wks She comes in labor, O+, R-non imm, GBS neg. P: Admit, epidural now, anticipate . Dr Santos updated Delivery A: of viable female, APGARS 8/9, Wt: 7lb 7oz, EBL 200cc Intact. Stable P: Routine pp plan of care
[2019-12-18] MEDS ORDERED: Docusate Sodium 100 MG Cap PO PRN (20:43)
[2019-12-18] MEDS ORDERED: oxyCODONE 5 MG Tab PO PRN (20:43)
[2019-12-18] MEDS ORDERED: Benzocaine/Menthol 20%-0.5% Spray 78 GM Cannister TOP PRN (20:43)
[2019-12-18] MEDS ORDERED: Bisacodyl 10 MG Supp RECTAL PRN (20:43)
[2019-12-18] MEDS ORDERED: Witch Hazel Medicated Pads 40/Jar TOP PRN (20:43)
[2019-12-18] MEDS ORDERED: Acetaminophen 500 MG Tab PO PRN ×2 (20:43)
[2019-12-18] MEDS ORDERED: Lanolin 100% Cream 7 GM Tube TOP PRN (20:43)
[2019-12-18] MEDS ORDERED: Ibuprofen 400 MG Tab PO PRN (20:43)
--- NOTE | 2019-12-19 07:18 | PCM48HPAN ---
Post Anesthesia Note - EVALUATION WITHIN 48HRS OF ANESTHETIC Vital Signs in Normal Range: Yes Patient Participated in Evaluation: Yes Respiratory Function Stable: Yes Airway Patent: Yes Cardiovascular Function Stable: Yes Hydration Status Stable: Yes Pain Control Satisfactory: Yes Nausea and Vomiting Control Satisfactory: Yes Mental Status Recovered: Yes Vital Signs: Last Vital Signs Temp 36.2 C 12/19/19 04:45 Pulse 83 12/19/19 04:45 Resp 18 12/19/19 04:45 BP 122/68 12/19/19 04:45 Pulse Ox 100 12/19/19 04:45
[2019-12-19] MEDS: Ibuprofen 800 MG Tab PO PRN ×2 (08:01→18:11)
--- NOTE | 2019-12-19 10:34 | PCM.DCSUM1 ---
Discharge Summary - Hospital Course Free Text/Narrative:: Discharge home with . Follow up in 6 weeks. Diagnosis: Stroke: No Modified Crosby Scale: No Symptoms at All Modified Crosby Scale Score: 0 - Discharge Data Discharge Date: 12/19/19 Discharge Disposition: Home, Self-Care 01 Condition: Good - Referral to Home Health Primary Care Physician: PCP Unobtainable - Discharge Diagnosis/Problem(s) (1) Supervision of normal IUP (intrauterine ) in multigravida SNOMED Code(s): 373661405, 673487586, 594694278 ICD Code: Z34.80 - ENCOUNTER FOR SUPRVSN OF NORMAL , UNSP TRIMESTER Status: Acute Priority: High Current Visit: Yes Qualifiers: Trimester: third trimester Qualified Code(s): Z34.83 - Encounter for supervision of other normal , third trimester (2) (normal spontaneous vaginal delivery) SNOMED Code(s): 23966095, 651863610 ICD Code: O80 - ENCOUNTER FOR FULL-TERM UNCOMPLICATED DELIVERY Status: Acute Priority: High Current Visit: No - Patient Instructions Diet: Usual Diet as Tolerated Activity: As Tolerated, No Strenuous Activities, Rest and Relax Today Driving: May Drive Today Showering/Bathing: May Shower Notify Provider of: Fever, Increased Pain, Swelling and Redness, Nausea and/or Vomiting Other/Special Instructions: Discharge home with infant. Follow up in 6 weeks. - Discharge Plan *PRESCRIPTION DRUG MONITORING PROGRAM REVIEWED*: Not Applicable *COPY OF PRESCRIPTION DRUG MONITORING REPORT IN PATIENT KRIS: Not Applicable Home Medications: Home Meds Pnv No.95/Ferrous Fum/Folic AC [ Caplet] 1 tab PO DAILY 09/05/19 [ History] Oxygen Therapy Mode: Room Air - Discharge Summary/Plan Comment DC Time >30 min.: Yes - General Info Date of Service: 12/19/19 Admission Dx/Problem (Free Text: Patient Status Order with Admit Dx/Problem 12/18/19 17:46 Patient Status [ADT] Routine Admission Diagnosis/Problem Admission Diagnosis/Problem -related examination 12/18/19 18:08 19yo EDC 12/26/2019 38 6/7wks She comes in labor, O+, R-non imm, GBS neg. Functional Status: Reports: Pain Controlled, Tolerating Diet, Ambulating, Urinating - Review of Systems General: Reports: No Symptoms HEENT: Reports: No Symptoms Pulmonary: Reports: No Symptoms Cardiovascular: Reports: No Symptoms Gastrointestinal: Reports: No Symptoms Genitourinary: Reports: No Symptoms 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: Reports: No Symptoms Skin: Reports: No Symptoms Neurological: Reports: No Symptoms Psychiatric: Reports: No Symptoms - Patient Data Vitals - Most Recent: Last Vital Signs Temp 36.4 C 12/19/19 07:36 Pulse 64 12/19/19 07:36 Resp 18 12/19/19 07:36 BP 110/70 12/19/19 07:36 Pulse Ox 99 12/19/19 07:36 Weight - Most Recent: 79.379 kg Lab Results - Last 24 hrs: Laboratory Results - last 24 hr 12/18/19 12/18/19 Range/Units 18:10 18:10 WBC 15.62 H (4.0-11.0) K/uL RBC 3.84 L (4.30-5.90) M/uL Hgb 9.8 L (12.0-16.0) g/dL Hct 31.1 L (36.0-46.0) % MCV 81.0 (80.0-98.0) fL MCH 25.5 L (27.0-32.0) pg MCHC 31.5 (31.0-37.0) g/dL RDW Std Deviation 43.6 (28.0-62.0) fl RDW Coeff of Gideon 15 (11.0-15.0) % Plt Count 226 (150-400) K/uL MPV 9.50 (7.40-12.00) fL Nucleated RBC % 0.0 /100WBC Nucleated RBCs # 0 K/uL Blood Type O POSITIVE Antibody Screen NEGATIVE Med Orders - Current: Current Medications Acetaminophen (Tylenol Extra Strength) 500 mg PO Q4H PRN PRN Reason: Pain Acetaminophen (Tylenol Extra Strength) 1,000 mg PO Q4H PRN PRN Reason: Pain Benzocaine/Menthol (Dermoplast Pain Relief 20%-0.5% [place]) 0 gm TOP ASDIRECTED PRN PRN Reason: Perineal Comfort Measure Last Admin: 12/19/19 00:39 Dose: 78 gm Bisacodyl (Dulcolax) 10 mg RECTAL ONETIME PRN PRN Reason: Constipation Docusate Sodium (Colace) 100 mg PO BID PRN PRN Reason: Constipation Last Admin: 12/19/19 08:01 Dose: 100 mg Emollient Ointment (Lansinoh Hpa) 0 gm TOP ASDIRECTED PRN PRN Reason: Sore Nipples Ibuprofen (Motrin) 400 mg PO Q4H PRN PRN Reason: Pain Ibuprofen (Motrin) 800 mg PO Q6H PRN PRN Reason: Pain Last Admin: 12/19/19 08:01 Dose: 800 mg Oxycodone HCl (Oxycodone) 5 mg PO Q2H PRN PRN Reason: Pain Witch Maria Guadalupe (Tucks) 1 pad TOP ASDIRECTED PRN PRN Reason: comfort care Last Admin: 12/19/19 00:39 Dose: 1 pad Discontinued Medications Butorphanol Tartrate (Stadol) 1 mg IVPUSH ASDIRECTED PRN PRN Reason: Pain Carboprost Tromethamine (Hemabate Ds) 250 mcg IM ASDIRECTED PRN PRN Reason: Post Hemorrhage Fentanyl (Sublimaze) Confirm Administered Dose 100 mcg .ROUTE .[employer]-MED ONE Stop: 12/18/19 18:32 Last Admin: 12/19/19 08:31 Dose: Not Given Lactated Ringer's (Ringers, Lactated) 1,000 mls @ 150 mls/hr IV ASDIRECTED [facility] Last Infusion: 12/18/19 19:09 Dose: 150 mls/hr Oxytocin/Sodium Chloride (Oxytocin 30 Unit/500 Ml-Ns) 30 unit in 500 mls @ 999 mls/hr IV TITRATE [facility] Last Admin: 12/18/19 19:44 Dose: 999 mls/hr Tranexamic Acid 1,000 mg/ (Sodium Chloride) 110 mls @ 660 mls/hr IV ONETIME PRN PRN Reason: Bleeding Ropivacaine (Naropin 0.2%) Confirm Administered Dose 100 mls @ as directed .ROUTE .[employer]-MED ONE Stop: 12/18/19 18:32 Last Admin: 12/19/19 08:31 Dose: Not Given Lidocaine HCl (Xylocaine 1%) 50 ml INJECT ONETIME PRN PRN Reason: Laceration repair Methylergonovine Maleate (Methergine) 0.2 mg IM ASDIRECTED PRN PRN Reason: Post Hemorrhage Misoprostol (Cytotec) 200 mcg PO ONETIME PRN PRN Reason: Post Hemorrhage Nalbuphine HCl (Nubain) 10 mg IVPUSH ASDIRECTED PRN PRN Reason: Pain (severe 7-10) Sodium Chloride (Saline Flush) 10 ml FLUSH ASDIRECTED PRN PRN Reason: Keep Vein Open Sodium Chloride (Normal Saline) 10 ml IV ASDIRECTED PRN PRN Reason: IV Use Sterile Water (Sterile Water For Irrigation) 1,000 ml IRR ASDIRECTED PRN PRN Reason: delivery - Exam General: Reports: Alert, Oriented, Cooperative Lungs: Reports: Normal Respiratory Effort GI/Abdominal Exam: Soft, Non-Tender (Female) Exam: Deferred, Vaginal Bleeding Rectal (Female) Exam: Deferred Back Exam: Reports: Normal Inspection, Full Range of Motion Extremities: Normal Inspection, Normal Range of Motion, Non-Tender, No Pedal Edema Skin: Reports: Warm, Dry, Intact Neurological: Reports: No New Focal Deficit, Normal Speech, Normal Tone, Sensation Intact Psy/Mental Status: Reports: Alert, Normal Affect, Normal Mood
[2019-12-19] MEDS ORDERED: Measles, Mumps & Rubella Vaccine 0.5 ML SDV SUBCUT ONE (20:00)
== END 2019-12-19 21:50 | disposition home or self-care (01) | DRG 807 ==
LOC: MW.OB 17:26 → MW.OBCHECK 17:26 → MW.OB 17:46 → OBSVTOIN 20:44 → MW.OB 12-19 00:59
PROVIDERS: ADMIT Obstetrics & Gynecology; ATTEND Obstetrics & Gynecology
PROC: 10E0XZZ Delivery of Products of Conception, External Approach (ICD-10-PCS; principal; 2019-12-18)
PROC: 10D17Z9 Manual Extraction of Products of Conception, Retained, Via Natural or Artificial Opening (ICD-10-PCS; 2019-12-18)
PROC: 10907ZC Drainage of Amniotic Fluid, Therapeutic from Products of Conception, Via Natural or Artificial Opening (ICD-10-PCS; 2019-12-18)
PROC: 3E0R3BZ Introduction of Anesthetic Agent into Spinal Canal, Percutaneous Approach (ICD-10-PCS; 2019-12-18)
PROC: 00HU33Z Insertion of Infusion Device into Spinal Canal, Percutaneous Approach (ICD-10-PCS; 2019-12-18)
PROC: 3E0234Z Introduction of Serum, Toxoid and Vaccine into Muscle, Percutaneous Approach (ICD-10-PCS; 2019-12-19)
DX: O80 Encounter for full-term uncomplicated delivery (principal); Z37.0 Single live birth; Z3A.38 38 weeks gestation of pregnancy; Z23 Encounter for immunization
CPT/HCPCS: 01967; 36415; 51702; 59025; 59409; 85027; 86592; 86850; 86900; 86901; 90471; 90707; A9270-GY; J2590; J2795; J3010; J7120

== ENCOUNTER 2020-06-07 23:28 | Emergency (ER) | payer SELFPAY ==
--- NOTE | 2020-06-08 00:14 | EDM.PDOC ---
ED HPI GENERAL MEDICAL PROBLEM - General Chief Complaint: Lower Extremity Injury/Pain Stated Complaint: RT BARTHOLOMEW INJURY Time Seen by Provider: 06/08/20 00:00 - History of Present Illness INITIAL COMMENTS - FREE TEXT/NARRATIVE: History of present illness: Patient presents with right foot and ankle pain after running up some stairs and stumbling and striking her foot on the stair she said she was running away from mosquitoes that were biting her outside while she was working on her car with her . She denies any other injuries she has an abrasion to her right bartholomew and pain to the anterior aspect of the right foot and ankle the mortise is stable good distal pulse motor and sensation movement makes it worse being still makes it better Review of systems: As per history of present illness and below otherwise all systems reviewed and negative. Past medical history: As per history of present illness and as reviewed below otherwise noncontributory. Surgical history: As per history of present illness and as reviewed below otherwise noncontributory. Social history: No reported history of drug or alcohol abuse. Family history: As per history of present illness and as reviewed below otherwise noncontributory. Physical exam: HEENT: Atraumatic, normocephalic, pupils reactive, negative for conjunctival pallor or scleral icterus, mucous membranes moist, throat clear, neck supple, nontender, trachea midline. Lungs: Clear to auscultation, breath sounds equal bilaterally, chest nontender. Heart: S1S2, regular, negative for clicks, rubs, or JVD. Abdomen: Soft, nondistended, nontender. Negative for masses or hepatosplenomegaly. Negative for costovertebral tenderness. Pelvis: Stable nontender. Genitourinary: Deferred. Rectal: Deferred. Extremities: Atraumatic, negative for cords or calf pain. Neurovascular unremarkable. A very superficial abrasion to the anterior aspect of the right ankle with pain to the talus and metatarsals of the right foot. Good distal pulse motor and sensation are present Neuro: Awake, alert, oriented. Cranial nerves II through XII unremarkable. Cerebellum unremarkable. Motor and sensory unremarkable throughout. Exam nonfocal. Diagnostics: [] Therapeutics: [] Impression: Ankle foot contusion [] Plan: X-ray ice reassess [] Definitive disposition and diagnosis as appropriate pending reevaluation and review of above. 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: 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 History: Reports: None Neurological History: Reports: Migraines, Seizure, Other (See Below) Other Neuro History: last seizure february 2017 Psychiatric History: Reports: Anxiety, Depression Endocrine/Metabolic History: Reports: None Insulin Pump Model and Flat Sheet Maker: None Hematologic History: Reports: None Immunologic History: Reports: None Oncologic (Cancer) History: Reports: None Dermatologic History: Reports: None - Infectious Disease History Infectious Disease History: Reports: None - Past Surgical History Head Surgeries/Procedures: Reports: None HEENT Surgical History: Reports: Adenoidectomy, Tonsillectomy Other HEENT Surgeries/Procedures: wears eye glasses Cardiovascular Surgical History: Reports: None Respiratory Surgical History: Reports: None GI Surgical History: Reports: None Female Surgical History: Reports: None Endocrine Surgical History: Reports: None 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 Surgical History: Reports: None Dermatological Surgical History: Reports: None Social & Family History - Family History Family Medical History: Noncontributory - Tobacco Use Smoking Status *Q: Current Every Day Smoker Years of Tobacco use: 2 Packs/Tins Daily: 0.5 - Caffeine Use Caffeine Use: Reports: Coffee, Energy Drinks, Soda - Recreational Drug Use Recreational Drug Use: No Review of Systems - Review of Systems Review Of Systems: See Below ED EXAM, GENERAL - Physical Exam Exam: See Below Course - Vital Signs Text/Narrative:: 3 view right ankle read and interpreted by me no acute fracture dislocations noted. Patiently put in an Aircast and crutches she will be referred to Ortho and discharged home with naproxen. Last Recorded V/S: Last Vital Signs Temp 35.8 C L 06/07/20 23:55 Pulse 92 06/07/20 23:55 Resp 18 06/07/20 23:55 BP 116/60 06/07/20 23:55 Pulse Ox 98 06/07/20 23:55 - Orders/Labs/Meds Orders: Active Orders 24 hr Category Date Time Status Ibuprofen [Motrin] Med 06/08/20 00:42 Once 800 mg PO ONETIME ONE DME for Discharge [COMM] Stat Oth 06/08/20 00:41 Ordered DME for Discharge [COMM] Stat Oth 06/08/20 00:41 Ordered Departure - Departure Time of Disposition: 00:43 Disposition: Home, Self-Care 01 Condition: Good Clinical Impression: Ankle sprain - Discharge Information *PRESCRIPTION DRUG MONITORING PROGRAM REVIEWED*: Not Applicable *COPY OF PRESCRIPTION DRUG MONITORING REPORT IN PATIENT KRIS: Not Applicable Instructions: How to Use a Stirrup Ankle Brace, [id number], Ankle Sprain, [id number] Referrals: PCP,None [Primary Care Provider] - Forms: ED Department Discharge Additional Instructions: The following information is given to patients seen in the emergency department who are being discharged to home. This information is to outline your options for follow-up care. We provide all patients seen in our emergency department with a follow-up referral. The need for follow-up, as well as the timing and circumstances, are variable depending upon the specifics of your emergency department visit. If you don't have a primary care physician on staff, we will provide you with a referral. We always advise you to contact your personal physician following an emergency department visit to inform them of the circumstance of the visit and for follow-up with them and/or the need for any referrals to a consulting specialist. The emergency department will also refer you to a specialist when appropriate. This referral assures that you have the opportunity for follow-up care with a specialist. All of these measure are taken in an effort to provide you with optimal care, which includes your follow-up. Under all circumstances we always encourage you to contact your private physician who remains a resource for coordinating your care. When calling for follow-up care, please make the office aware that this follow-up is from your recent emergency room visit. If for any reason you are refused follow-up, please contact the [facility] Emergency Department at and asked to speak to the emergency department charge nurse. [facility] - [facility] Professional [address], [address] [place] [address] Sepsis Event Note (ED) - Evaluation Sepsis Screening Result: No Definite Risk - Focused Exam Vital Signs: Vital Signs Temp Pulse Resp BP Pulse Ox 06/07/20 23:55 35.8 C L 92 18 116/60 98 - My Orders Last 24 Hours: My Active Orders 06/08/20 00:41 DME for Discharge [COMM] Stat DME for Discharge [COMM] Stat 06/08/20 00:42 Ibuprofen [Motrin] 800 mg PO ONETIME ONE - Assessment/Plan Last 24 Hours: My Active Orders 06/08/20 00:41 DME for Discharge [COMM] Stat DME for Discharge [COMM] Stat 06/08/20 00:42 Ibuprofen [Motrin] 800 mg PO ONETIME ONE
--- NOTE | 2020-06-08 00:29 | CR ---
HISTORY: Ankle pain after falling down stairs, pain more prominent anteriorly. COMPARISON: None available. FINDINGS: AP, lateral and oblique views of the right ankle were obtained for a total of three views. There is no sign of fracture or dislocation. The ankle mortise is intact. The talar dome is intact. There is no sign of a joint effusion. The soft tissues are normal in appearance with no sign of foreign body. No degenerative disease is seen. IMPRESSION: Normal right ankle. Dictated by Arturo Stringer MD @ Jun 08 2020 12:26AM Signed by Dr. Arturo Stringer @ Jun 08 2020 12:28AM
[2020-06-08] MEDS ORDERED: Ibuprofen 800 MG Tab PO ONE (00:42)
== END 2020-06-08 01:20 | disposition home or self-care (01) ==
LOC: MW.ED 23:28
DX: S93.401A Sprain of unspecified ligament of right ankle, initial encounter (principal); F17.210 Nicotine dependence, cigarettes, uncomplicated; W10.9XXA Fall (on) (from) unspecified stairs and steps, initial encounter; Y93.02 Activity, running
CPT/HCPCS: 73610; 99283; A9270

== ENCOUNTER 2021-12-06 22:07 | Inpatient (IN) | payer BC, MEDICAID ==
[2021-12-06] MEDS ORDERED: Methylergonovine 0.2 MG/1 ML Amp IM PRN (22:53)
[2021-12-06] MEDS ORDERED: Sodium Chloride 0.9% 10 ML Syringe FLUSH PRN (22:53)
[2021-12-06] MEDS ORDERED: Tranexamic Acid 1,000 MG in Sodium Chloride 0.9% 100 ML IV PRN (22:53)
[2021-12-06] MEDS ORDERED: Water For Irrigation,Sterile 1,000 ML Container IRR PRN (22:53)
[2021-12-06] MEDS ORDERED: Nalbuphine 10 MG/1 ML Vial IVPUSH PRN (22:53)
[2021-12-06] MEDS ORDERED: Carboprost Tromethamine 250 MCG/1 ML Amp IM PRN (22:53)
[2021-12-06] MEDS ORDERED: Lidocaine 1% 50 ML MDV INJECT PRN (22:53)
[2021-12-06] MEDS ORDERED: Sodium Chloride 0.9% 20 ML SDV IV PRN (22:53)
[2021-12-06] MEDS ORDERED: Butorphanol 1 MG/ML SDV IVPUSH PRN (22:53)
[2021-12-06] MEDS ORDERED: Misoprostol 200 MCG Tab PO PRN (22:53)
[2021-12-06] MEDS ORDERED: Sodium Chloride 0.9% 2.5 ML Syringe FLUSH PRN (22:53)
[2021-12-06] MEDS ORDERED: Oxytocin/0.9 % Sodium Chloride 30 UNIT/500 ML BAG IV SCH (23:00)
[2021-12-06] MEDS ORDERED: Lactated Ringers 1,000 ML IV SCH (23:00)
[2021-12-07] MEDS ORDERED: Ampicillin 2 GM in Sodium Chloride 0.9% 100 ML IV ONE ×2
[2021-12-07] MEDS: Ampicillin 1 GM in Sodium Chloride 0.9% 50 ML IV SCH ×2 (03:55→07:46)
[2021-12-07] MEDS ORDERED: Ropivacaine HCl/PF 100 ML ONE (05:51)
[2021-12-07] MEDS ORDERED: fentaNYL 100 MCG/2 ML SDV ONE (05:52)
[2021-12-07] MEDS ORDERED: ePHEDrine 50 MG/ML SDV IVPUSH PRN ×2 (06:22)
[2021-12-07] MEDS ORDERED: Ropivacaine HCl/PF 200 MG in Premix Bag 1 BAG EPIDUR SCH (06:30)
[2021-12-07] MEDS ORDERED: Docusate Sodium 100 MG Cap PO PRN ×2 (10:56→11:25)
[2021-12-07] MEDS ORDERED: Acetaminophen 500 MG Tab PO PRN ×4 (10:56→11:25)
[2021-12-07] MEDS ORDERED: Benzocaine/Menthol 20%-0.5% Spray 78 GM Cannister TOP PRN ×2 (10:56→11:25)
[2021-12-07] MEDS ORDERED: Bisacodyl 10 MG Supp RECTAL PRN ×2 (10:56→11:25)
[2021-12-07] MEDS ORDERED: Lanolin 100% Cream 7 GM Tube TOP PRN ×2 (10:56→11:25)
[2021-12-07] MEDS ORDERED: Witch Hazel Medicated Pads 40/Jar TOP PRN ×2 (10:56→11:25)
[2021-12-07] MEDS ORDERED: oxyCODONE 5 MG Tab PO PRN (10:56)
[2021-12-07] MEDS ORDERED: Ibuprofen 800 MG Tab PO PRN (10:56)
[2021-12-07] MEDS ORDERED: Ibuprofen 400 MG Tab PO PRN ×2 (10:56→11:25)
[2021-12-07] MEDS: Ibuprofen 800 MG Tab PO PRN (20:07)
[2021-12-08] MEDS: Ibuprofen 800 MG Tab PO PRN ×2 (08:15→20:06)
[2021-12-09] MEDS: Ibuprofen 800 MG Tab PO PRN (04:39)
== END 2021-12-09 12:05 | disposition home or self-care (01) | DRG 560 ==
LOC: MW.OBCHECK 22:07 → MW.OB 22:07 → MW.OBCHECK 23:10 → OBSVTOIN 12-07 11:26 → MW.OB 12-07 19:44
PROVIDERS: ADMIT Obstetrics & Gynecology Obstetrics; ATTEND Obstetrics & Gynecology Obstetrics
PROC: 10E0XZZ Delivery of Products of Conception, External Approach (ICD-10-PCS; principal; 2021-12-07)
PROC: 0UQMXZZ Repair Vulva, External Approach (ICD-10-PCS; 2021-12-07)
PROC: 3E0R3BZ Introduction of Anesthetic Agent into Spinal Canal, Percutaneous Approach (ICD-10-PCS; 2021-12-07)
PROC: 00HU33Z Insertion of Infusion Device into Spinal Canal, Percutaneous Approach (ICD-10-PCS; 2021-12-07)
DX: O99.354 Diseases of the nervous system complicating childbirth (principal); Z37.0 Single live birth; G43.909 Migraine, unspecified, not intractable, without status migrainosus; O98.52 Other viral diseases complicating childbirth; U07.1 COVID-19; O99.824 Streptococcus B carrier state complicating childbirth; O70.0 First degree perineal laceration during delivery; Z3A.38 38 weeks gestation of pregnancy
CPT/HCPCS: 01967; 36415; 51702; 59025; 59409; 85014; 85018; 85027; 86592; 86850; 86900; 86901; A9270-GY; J0290; J2590; J2795; J3010; J7120; U0002

== ENCOUNTER 2022-11-30 16:33 | Inpatient (IN) | payer MEDICAID ==
[2022-11-30] MEDS ORDERED: Sodium Chloride 0.9% 20 ML SDV IV PRN (16:49)
[2022-11-30] MEDS ORDERED: Misoprostol 200 MCG Tab PO PRN (16:49)
[2022-11-30] MEDS ORDERED: Butorphanol 1 MG/ML SDV IVPUSH PRN (16:49)
[2022-11-30] MEDS ORDERED: Water For Irrigation,Sterile 1,000 ML Container IRR PRN (16:49)
[2022-11-30] MEDS ORDERED: Methylergonovine 0.2 MG/1 ML Amp IM PRN (16:49)
[2022-11-30] MEDS ORDERED: Carboprost Tromethamine 250 MCG/1 ML Amp IM PRN (16:49)
[2022-11-30] MEDS ORDERED: Tranexamic Acid 1,000 MG in Sodium Chloride 0.9% 100 ML IV PRN (16:49)
[2022-11-30] MEDS ORDERED: Lidocaine 1% 50 ML MDV INJECT PRN (16:49)
[2022-11-30] MEDS ORDERED: Sodium Chloride 0.9% 2.5 ML Syringe FLUSH PRN (16:49)
[2022-11-30] MEDS ORDERED: Sodium Chloride 0.9% 10 ML Syringe FLUSH PRN (16:49)
[2022-11-30] MEDS ORDERED: Lactated Ringers 1,000 ML IV SCH (17:00)
[2022-11-30] MEDS ORDERED: Ampicillin 2 GM in Sodium Chloride 0.9% 100 ML IV ONE (17:00)
[2022-11-30] MEDS ORDERED: Oxytocin/0.9 % Sodium Chloride 30 UNIT/500 ML BAG IV SCH (17:00)
[2022-11-30] MEDS ORDERED: oxyCODONE 5 MG Tab PO PRN (20:27)
[2022-11-30] MEDS ORDERED: Ibuprofen 400 MG Tab PO PRN (20:27)
[2022-11-30] MEDS ORDERED: Witch Hazel Medicated Pads 40/Jar TOP PRN (20:27)
[2022-11-30] MEDS ORDERED: Bisacodyl 10 MG Supp RECTAL PRN (20:27)
[2022-11-30] MEDS ORDERED: Lanolin 100% Cream 7 GM Tube TOP PRN (20:27)
[2022-11-30] MEDS ORDERED: Acetaminophen 500 MG Tab PO PRN ×2 (20:27)
[2022-11-30] MEDS ORDERED: Docusate Sodium 100 MG Cap PO PRN (20:27)
[2022-11-30] MEDS ORDERED: Benzocaine/Menthol 20%-0.5% Spray 78 GM Cannister TOP PRN (20:27)
[2022-11-30] MEDS ORDERED: Ampicillin 1 GM in Sodium Chloride 0.9% 50 ML IV SCH (21:00)
[2022-12-01] MEDS: Ibuprofen 800 MG Tab PO PRN ×2 (01:44→17:17)
== END 2022-12-02 12:20 | disposition home or self-care (01) | DRG 807 ==
LOC: MW.OBCHECK 16:33 → MW.OB 16:50 → OBSVTOIN 20:10 → MW.OB 23:20
PROVIDERS: ADMIT Obstetrics & Gynecology; ATTEND Obstetrics & Gynecology Obstetrics
PROC: 10E0XZZ Delivery of Products of Conception, External Approach (ICD-10-PCS; principal; 2022-11-30)
PROC: 10907ZC Drainage of Amniotic Fluid, Therapeutic from Products of Conception, Via Natural or Artificial Opening (ICD-10-PCS; 2022-11-30)
DX: O77.0 Labor and delivery complicated by meconium in amniotic fluid (principal); Z37.0 Single live birth; Z3A.39 39 weeks gestation of pregnancy; Z20.822 Contact with and (suspected) exposure to COVID-19
CPT/HCPCS: 36415; 59025; 59409; 85014; 85018; 85027; 86592; 86850; 86900; 86901; A9270-GY; J0290; J2590; J7050; J7120; U0002

== ENCOUNTER 2023-07-03 19:22 | Emergency (ER) | payer MEDICAID | END 2023-07-03 21:32 | disposition home or self-care (01) | LOC: MW.ED 19:22 | DX: S93.401A Sprain of unspecified ligament of right ankle, initial encounter (principal); X50.1XXA Overexertion from prolonged static or awkward postures, initial encounter | CPT/HCPCS: 73610-26-RT; 73610-RT; 99282; 99283 ==